=== PATIENT | male | born 1955 | race Caucasian/White ===

== ENCOUNTER 2017-03-18 19:45 | Inpatient (IN) | payer OTHER, SELFPAY ==
--- NOTE | 2017-03-18 | XR_ITS ---
XR chest portable HISTORY: Chest pain ORDERING PHYSICIAN: Itz Coyle MD PATIENT AGE: 61 years COMPARISON: None available FINDINGS: Cardiomegaly with mild pulmonary venous engorgement. No lobar consolidation or collapse. No acute bony anomalies. IMPRESSION: Cardiomegaly with mild CHF
[2017-03-18 19:56] VITALS: BP 70/0; PULSE 70; RESP 24; O2SAT 97; BMI 28.8
[2017-03-18 20:10] VITALS: BP 70/0; PULSE 61; RESP 24; TEMP 37.2; O2SAT 97; BMI 28.0
[2017-03-18 20:25] LABS: Basophils % 0.2 % (0.1-2.0); Eosinophils # 0.1 K/mm3 (0.0-0.4); Eosinophils % 0.3 % (0.1-12.0); Hematocrit 37.2 % (42.0-52.0); Hemoglobin 12.2 g/dL (14.1-18.0); Lymphocytes # 0.9 K/mm3 (0.7-4.5); Lymphocytes % 4.8 K/mm3 (10-50); Mean Corpuscular HGB Conc 32.8 g/dL (31.8-35.4); Mean Corpuscular Hemoglobin 31.1 pg (27.0-31.2); Mean Corpuscular Volume 94.6 fl (80-94); Mean Platelet Volume 8.4 fl (7.4-10.4); Monocytes # 0.5 K/mm3 (0.1-1.0); Monocytes % 2.9 % (1.7-9.3); Neutrophils # 16.6 K/mm3 (1.8-7.8); Neutrophils % 91.8 % (37.0-80.0); Platelet Count 233 K/mm3 (142-424); Red Blood Count 3.94 M/mm3 (4.60-6.20); Red Cell Distribution Width 13.1 % (11.5-17.5); White Blood Count 18.1 K/mm3 (4.8-10.8)
[2017-03-18 20:26] VITALS: O2SAT 94
[2017-03-18 20:27] LABS: MANUAL DIFFERENTIAL MANUAL DIFFERENTIAL (MANUAL DIFF)
--- NOTE | 2017-03-18 20:34 | HMH.EDSYNC ---
ED Disposition Clinical Impression: Near syncope, Dehydration, Renal insufficiency, Liver mass, right lobe Leukocytosis Qualifiers: Leukocytosis type: bandemia Qualified Code(s): D72.825 - Bandemia Disposition: Admitted As Inpatient Condition on Discharge: Good - Critical Care Critical Care Time: Yes Attestation: On 03/18/17, the high probability of a clinically significant, sudden or life threatening deterioration of the following system(s) required my full and direct attention, intervention and personal management. The time I documented below is in addition to time spent performing reported procedures but includes the following listed in this critical care notation. Total Critical Care Time: 120 Vital system(s) involved:: Metabolic Failure My critical care processes included: Assessment & monitoring of V/S, Initial and Re-exams, Coordinating Care, Medication Orders and management, Documentation Medical Decision Making - Medical Records Medical records reviewed: Yes: I reviewed the patient's medical records. Vital Signs: 03/18/17 19:56 03/18/17 20:10 03/18/17 20:26 Temperature 99 F Temperature Source Rectal Rectal Pulse Rate [Left Brachial] 70 61 Respiratory Rate 24 24 Blood Pressure [Left Arm] 70/0 70/0 Blood Pressure [Right Arm] Blood Pressure Mean [Left Arm] 23 23 Blood Pressure Mean [Right Arm] Blood Pressure Source [Left Arm] Manual Cuff/ Auscultation Manual Cuff/ Auscultation Blood Pressure Source [Right Arm] Blood Pressure Position [Left Arm] Sitting Sitting Blood Pressure Position [Right Arm] 02 Sat by Pulse Oximetry 97 97 94 L Oxygen Delivery Method Nasal Cannula Nasal Cannula Nasal Cannula Oxygen Flow Rate (LPM) 2 2 2 03/18/17 21:05 03/18/17 22:46 Temperature Temperature Source Pulse Rate [Left Brachial] 65 70 Respiratory Rate 20 20 Blood Pressure [Left Arm] 89/65 98/60 Blood Pressure [Right Arm] 98/60 Blood Pressure Mean [Left Arm] 73 72 Blood Pressure Mean [Right Arm] 72 Blood Pressure Source [Left Arm] Automatic Cuff Automatic Cuff Blood Pressure Source [Right Arm] Automatic Cuff Blood Pressure Position [Left Arm] Supine Supine Blood Pressure Position [Right Arm] Supine 02 Sat by Pulse Oximetry 94 L 91 L Oxygen Delivery Method Nasal Cannula Nasal Cannula Oxygen Flow Rate (LPM) 2 2 - Lab Data Lab Results 03/18/17 20:00: WBC 18.1 H, RBC 3.94 L, Hgb 12.2 L, Hct 37.2 L, MCV 94.6 H, MCH 31.1, MCHC 32.8, RDW 13.1, Plt Count 233, MPV 8.4, Neut % (Auto) 91.8 H, Lymph % (Auto) 4.8 L, [place] % (Auto) 2.9, Eos % (Auto) 0.3, Baso % (Auto) 0.2, Neut # (Auto) 16.6 H, Lymph # (Auto) 0.9, [place] # (Auto) 0.5, Eos # (Auto) 0.1, Baso # (Auto) 0.0, Total Counted 100, Neutrophils % (Manual) 91 H, Lymphocytes % (Manual) 7 L, Monocytes % (Manual) 2, Platelet Estimate Normal, Anisocytosis 1+ 03/18/17 20:00: Sodium 136, Potassium 3.3 L, Chloride 100, Carbon Dioxide 24, Anion Gap 15.3 H, BUN 28 H, Creatinine 1.84 H, Estimated Creat Clear 50, Estimated GFR 37 L, Est GFR ( Amer) 45 L, Glucose 141 H, Calcium 8.8, Total Bilirubin 1.1 H, AST 88 H, ALT 94 H, Alkaline Phosphatase 125 H, Total Creatine Kinase 70, CK-MB (CK-2) 1.8, CK-MB (CK-2) Rel Index 2.6, Troponin I 0.40 H, Total Protein 7.0, Albumin 2.8 L, Globulin 4.2 H, Albumin/Globulin Ratio 0.7 L 03/18/17 20:00: Influenza Type A Ag Negative, Influenza Type B Ag Negative 03/18/17 20:30: Lactic Acid 5.3 H 03/18/17 22:05: Troponin I 0.28 H Result diagrams: 03/18/17 20:00 03/18/17 20:00 Orders (Tests/Meds): ED MEDICATIONS Discontinued Medications Generic Name Dose Route Start Last Admin Trade Name Freq PRN Reason Stop Dose Admin Sodium Chloride 2,000 mls @ 999 mls/hr 03/18/17 20:30 Sod Chloride 0.9% 1000ml Bag IV 03/18/17 21:30 .Q2H1M DINO Sodium Chloride 1,000 mls @ 999 mls/hr 03/18/17 20:30 03/18/17 20:31 Sod Chloride 0.9% 1000ml Bag IV 03/18/17 22:30 999 mls/hr .Q1H1M DINO Administration
--- NOTE | 2017-03-18 20:38 | ED_ITS ---
ED Disposition Clinical Impression: Near syncope, Dehydration, Renal insufficiency, Liver mass, right lobe Leukocytosis Qualifiers: Leukocytosis type: bandemia Qualified Code(s): D72.825 - Bandemia Disposition: Admitted As Inpatient Condition on Discharge: Good - Critical Care Critical Care Time: Yes Attestation: On 03/18/17, the high probability of a clinically significant, sudden or life threatening deterioration of the following system(s) required my full and direct attention, intervention and personal management. The time I documented below is in addition to time spent performing reported procedures but includes the following listed in this critical care notation. Total Critical Care Time: 120 Vital system(s) involved:: Metabolic Failure My critical care processes included: Assessment & monitoring of V/S, Initial and Re-exams, Coordinating Care, Medication Orders and management, Documentation Medical Decision Making - Medical Records Medical records reviewed: Yes: I reviewed the patient's medical records. Vital Signs: 03/18/17 19:56 03/18/17 20:10 03/18/17 20:26 Temperature 99 F Temperature Source Rectal Rectal Pulse Rate [Left Brachial] 70 61 Respiratory Rate 24 24 Blood Pressure [Left Arm] 70/0 70/0 Blood Pressure [Right Arm] Blood Pressure Mean [Left Arm] 23 23 Blood Pressure Mean [Right Arm] Blood Pressure Source [Left Arm] Manual Cuff/ Auscultation Manual Cuff/ Auscultation Blood Pressure Source [Right Arm] Blood Pressure Position [Left Arm] Sitting Sitting Blood Pressure Position [Right Arm] 02 Sat by Pulse Oximetry 97 97 94 L Oxygen Delivery Method Nasal Cannula Nasal Cannula Nasal Cannula Oxygen Flow Rate (LPM) 2 2 2 03/18/17 21:05 03/18/17 22:46 Temperature Temperature Source Pulse Rate [Left Brachial] 65 70 Respiratory Rate 20 20 Blood Pressure [Left Arm] 89/65 98/60 Blood Pressure [Right Arm] 98/60 Blood Pressure Mean [Left Arm] 73 72 Blood Pressure Mean [Right Arm] 72 Blood Pressure Source [Left Arm] Automatic Cuff Automatic Cuff Blood Pressure Source [Right Arm] Automatic Cuff Blood Pressure Position [Left Arm] Supine Supine Blood Pressure Position [Right Arm] Supine 02 Sat by Pulse Oximetry 94 L 91 L Oxygen Delivery Method Nasal Cannula Nasal Cannula Oxygen Flow Rate (LPM) 2 2 - Lab Data Lab Results 03/18/17 20:00: WBC 18.1 H, RBC 3.94 L, Hgb 12.2 L, Hct 37.2 L, MCV 94.6 H, MCH 31.1, MCHC 32.8, RDW 13.1, Plt Count 233, MPV 8.4, Neut % (Auto) 91.8 H, Lymph % (Auto) 4.8 L, [place] % (Auto) 2.9, Eos % (Auto) 0.3, Baso % (Auto) 0.2, Neut # ( Auto) 16.6 H, Lymph # (Auto) 0.9, [place] # (Auto) 0.5, Eos # (Auto) 0.1, Baso # ( Auto) 0.0, Total Counted 100, Neutrophils % (Manual) 91 H, Lymphocytes % (Manual ) 7 L, Monocytes % (Manual) 2, Platelet Estimate Normal, Anisocytosis 1+ 03/18/17 20:00: Sodium 136, Potassium 3.3 L, Chloride 100, Carbon Dioxide 24, Anion Gap 15.3 H, BUN 28 H, Creatinine 1.84 H, Estimated Creat Clear 50, Estimated GFR 37 L, Est GFR ( Amer) 45 L, Glucose 141 H, Calcium 8.8, Total Bilirubin 1.1 H, AST 88 H, ALT 94 H, Alkaline Phosphatase 125 H, Total Creatine Kinase 70, CK-MB (CK-2) 1.8, CK-MB (CK-2) Rel Index 2.6, Troponin I 0.40 H, Total Protein 7.0, Albumin 2.8 L, Globulin 4.2 H, Albumin/Globulin Ratio 0.7 L 03/18/17 20:00: Influenza Type A Ag Negati
--- NOTE | 2017-03-18 20:39 | PC.NURSE ---
respiratory notified for ABG.
--- NOTE | 2017-03-18 20:41 | CT_ITS ---
CT abdomen pelvis wo con CLINICAL INDICATION: Pain, hypotension, abnormal physical exam of the abdomen with tenderness ITS.REASON: abn abd exam ORDERING PHYSICIAN: Scott Garcia MD PATIENT AGE: 61 years COMPARISON: None TECHNIQUE: Axial images obtained with sagittal and coronal reformats. PROCEDURE: Oral Contrast: None IV Contrast: None . FINDINGS: Mild atelectatic changes in the lung bases. There are coronary artery calcifications and cardiomegaly. Small hiatal hernia There is an ill-defined 7.4 x 5.8 cm hypodense mass within the right hepatic lobe suspicious for malignancy. The gallbladder, spleen, pancreas, and adrenal glands are unremarkable. There is mild stranding of the perinephric renal fat. There is a 2.9 x 2.4 cm isodense exophytic lesion projecting off the lateral aspect of the left kidney. This is more dense somewhat one would expect for simple cyst. Hyperdense cyst or solid lesion is considered. Ultrasound suggested. No obstructing renal or ureteral calculi are evident. No intestinal obstruction or free air. Unremarkable appendix. There are scattered diverticula within the colon but no evidence of diverticulitis. Air-fluid levels present in the rectosigmoid may reflect diarrhea. No acute bony anomalies. IMPRESSION: 1. Ill-defined 7.4 cm hypodense mass within the right hepatic lobe which may be due to malignancy. Repeat exam with contrast with three-phase imaging suggested 2. Indeterminate isodense left renal lesion possibly related to complex cyst or solid lesion. Suggest ultrasound. 3. Other nonacute findings as described above
[2017-03-18 20:50] LABS: Alanine Aminotransferase 94 U/L (12-78); Albumin Level 2.8 gm/dL (3.4-5.0); Albumin/Globulin Ratio 0.7 (1.1-1.8); Alkaline Phosphatase 125 U/L (46-116); Anion Gap 15.3 mEq/L (5-15); Aspartate Amino Transferase 88 U/L (15-37); Bilirubin,Total 1.1 mg/dL (0.2-1.0); Blood Urea Nitrogen 28 mg/dL (7-18); CKMB Relative Index 2.6 U/L (0-4.0); Calcium 8.8 mg/dL (8.5-10.1); Carbon Dioxide 24 mmol/L (21.0-32.0); Chloride 100 mmol/L (98-107); Creatine Kinase 70 U/L (39-308); Creatine Kinase MB 1.8 mg/ml (0.0-3.6); Creatinine Clearance Estimated 50 mL/min (0-300); Creatinine,Serum 1.84 mg/dL (0.70-1.30); Estimated Glomerular Filt Rate 37 ml/min (>60); GFR (African American) 45 ML/MIN (>60); Globulin 4.2 gm/dl (1.3-3.2); Glucose 141 mg/dL (74-106); Potassium 3.3 mmoL/L (3.5-5.1); Sodium 136 mmol/L (136-145)
[2017-03-18 21:05] VITALS: BP 89/65; PULSE 65; RESP 20; O2SAT 94
[2017-03-18 21:12] LABS: Lactic Acid 5.3 mmol/L (0.4-2.0)
--- NOTE | 2017-03-18 21:12 | PC.NURSE ---
Critical lab value received from Mun[place] in lab. Lactic acid 5.3. Dr. Coyle immediately notified. Verbalized understanding.
[2017-03-18 22:16] LABS: Anisocytosis 1+; Lymphocytes % 7 % (10-50); Monocytes % 2 % (2-9); Neutrophils % 91 % (42-76); Platelet Estimate Normal; Total Cells Counted 100
[2017-03-18 22:46] VITALS: BP 98/60; PULSE 70; RESP 20; O2SAT 91
[2017-03-18 22:49] LABS: Troponin I 0.28 ng/ml (0.00-0.06)
[2017-03-19] VITALS (32 sets, daily range): BP systolic 96–185; BP diastolic 48–131; PULSE 67–115; RESP 0–24; TEMP 36.1–36.6; O2SAT 77–100
[2017-03-19 00:05] LABS: Reflex Lactic Add Lactic Reflex
--- NOTE | 2017-03-19 00:19 | PC.NURSE ---
PATIENT IS RECEIVING LITER # 5 AND 6 OF NORMAL SALINE WIDE OPEN
--- NOTE | 2017-03-19 00:20 | US_ITS ---
US abdomen complete HISTORY: Evaluate hepatic mass and left renal lesion ITS.REASON: abn ct liver ORDERING PHYSICIAN: Scott Garcia MD PATIENT AGE: 61 years COMPARISON: CT scan of 03/18/2017 FINDINGS: PANCREAS:Unremarkable. No obvious mass or abnormal fluid collection. No ductal dilatation LIVER:There is a 7 x 6.5 cm heterogeneous mass involving the right lobe of the liver corresponding to the CT abnormality. This has a somewhat septated appearance and does NOT represent a simple cyst. The septations are somewhat thickened.. RIGHT KIDNEY:Unremarkable. Normal size and echogenicity. No hydronephrosis LEFT KIDNEY: 2.7 cm exophytic cyst involving the left kidney laterally corresponding to the CT abnormality. No hydronephrosis. GALLBLADDER:No gallstones. Small amount of sludge. There is some minimal pericholecystic fluid. No gallbladder wall thickening. AORTA:No evidence of aneurysmal dilatation. SPLEEN:Unremarkable. Normal size and echogenicity ASCITES:None demonstrated. IMPRESSION: 1. 7 cm mass involves the right lobe of the liver having a heterogeneous echogenicity with a somewhat septated appearance. This could represent a septated cystic neoplasm such as metastatic lesion. Differential diagnosis would include abscess. Hepatic lymphangioma or hepatic hyadid cyst is felt to be less likely based on the appearance but not totally excluded. Suggest [address] scan with contrast for further evaluation. 2. Left adrenal nodule represents a cyst. 3. Minimal amount of pericholecystic fluid with a small amount gallbladder sludge
[2017-03-19 00:55] LABS: Microscopic, Urine URINE MICROSCOPIC (MICROSCOPIC)
[2017-03-19 01:12] LABS: Appearance,Urine CLEAR (Clear); Blood, Urine Negative (Negative); Color,Urine YELLOW (Yellow); Glucose,Urine (UA) Negative (Negative); Ketones,Urine TRACE (Negative); Leukocyte Esterase,Urine 1+ (Negative); Nitrate,Urine Negative (Negative); Protein,Urine 1+ (Negative); Specific Gravity, Urine 1.025 (1.005-1.030); Urobilinogen,Urine >=8.0 EU/dl (0.2)
[2017-03-19 01:16] LABS: Bilirubin,Urine Negative (Negative)
[2017-03-19 01:25] LABS: Adenovirus,PCR Not Detected (NotDetected); Bordetella Pertussis Not Detected (NotDetected); Chlamydophila Pneumoniae, PCR Not Detected (NotDetected); Coronavirus 229E Not Detected (NotDetected); Coronavirus NL63 Not Detected (NotDetected); Coronavirus OC43 Not Detected (NotDetected); Coronovirus HKU1,PCR Not Detected (NotDetected); Human Metapneumovirus Not Detected (NotDetected); Influenza A, PCR Not Detected (NotDetected); Influenza AH1, 2009 Not Detected (NotDetected); Influenza AH1, PCR Not Detected (NotDetected); Influenza AH3,PCR Not Detected (NotDetected); Influenza B, PCR Not Detected (NotDetected); Mycoplasma Pneumoniae, PCR Not Detected (NotDected); Parainfluenza 1, PCR Not Detected (NotDetected); Parainfluenza 2, PCR Not Detected (NotDetected); Parainfluenza 3, PCR Not Detected (NotDetected); Parainfluenza 4, PCR Not Detected (NotDetected); Respiratory Syncytial Virus Not Detected (NotDetected); Rhinovirus/Enterovirus Not Detected (NotDetected)
[2017-03-19 01:25] LABS: Lactic Acid Follow Up (RFLX 1) 3.9 (0.4-2.0)
[2017-03-19 01:26] LABS: Reflex Lactic (2 hrs) Add Lactic Reflex
[2017-03-19 01:27] LABS: Bacteria,Urine 1+ /lpf; Mucus,Urine 1+ /lpf; Sperm,Urine 1+ /lpf
[2017-03-19 01:59] LABS: POC Glucose,Bedside 152 mg/dL
[2017-03-19 03:26] LABS: Lactic Acid Follow up (RFLX 2) 3.5 (0.4-2.0)
--- NOTE | 2017-03-19 04:28 | PC.NURSE ---
PT IS A&OX3. PT ARRIVED TO THE FLOOR RECEIVING 2LPM VIA N/C. HE HAS BEEN DIAPHORETIC AT TIMES. DIFFICULTLY KEEPING MONITOR LEADS ON. HE REPORTED THAT ALL DAY HE HAS FELT LIKE HE IS FAVING PANIC ATTACKS. PT REPORTS THAT HE DOES NOT GO TO THE OFFICE OFTE, PT RECEIVED PRN DUONEB. ANDREWIE IS AT THE BEDSIDE.
[2017-03-19 06:22] LABS: Basophils % 0.1 % (0.1-2.0); Eosinophils % 0.1 % (0.1-12.0); Hematocrit 34.3 % (42.0-52.0); Hemoglobin 11.1 g/dL (14.1-18.0); Lymphocytes # 0.7 K/mm3 (0.7-4.5); Lymphocytes % 3.2 K/mm3 (10-50); Mean Corpuscular HGB Conc 32.5 g/dL (31.8-35.4); Mean Corpuscular Hemoglobin 30.9 pg (27.0-31.2); Mean Corpuscular Volume 95.1 fl (80-94); Mean Platelet Volume 8.7 fl (7.4-10.4); Monocytes # 0.5 K/mm3 (0.1-1.0); Monocytes % 2.3 % (1.7-9.3); Neutrophils # 21.2 K/mm3 (1.8-7.8); Neutrophils % 94.3 % (37.0-80.0); Platelet Count 206 K/mm3 (142-424); Red Cell Distribution Width 13.1 % (11.5-17.5); White Blood Count 22.5 K/mm3 (4.8-10.8)
[2017-03-19 06:39] LABS: MANUAL DIFFERENTIAL MANUAL DIFFERENTIAL (MANUAL DIFF)
[2017-03-19 06:49] LABS: Anion Gap 14.5 mEq/L (5-15); Blood Urea Nitrogen 31 mg/dL (7-18); Carbon Dioxide 22 mmol/L (21.0-32.0); Chloride 107 mmol/L (98-107); Creatinine Clearance Estimated 75 mL/min (0-300); Creatinine,Serum 1.32 mg/dL (0.70-1.30); Estimated Glomerular Filt Rate 55 ml/min (>60); GFR (African American) 66 ML/MIN (>60); Glucose 151 mg/dL (74-106); Potassium 4.5 mmoL/L (3.5-5.1); Sodium 139 mmol/L (136-145)
--- NOTE | 2017-03-19 06:51 | CA_ITS ---
PROCEDURE: 2-D M-mode and color Doppler study INDICATIONS FOR THE TEST: Chest pain COPDX Heart MurmurX Tobacco SmokingX Palpitations Fatigue Syncope Edema Hypertension Diabetes Mellitus Rheumatic Fever SOBXDOEXObesityXHyperlipidemia Family History HD Additional History PATIENT INFORMATION HEIGHT: 69 WEIGHT:203 GENDER: Male B/P:139/88 2-D/M-MODE INTERPRETATION: 2-D MEASUREMENTS OBSERVED VALUES IN CMS Right Ventricular Dimension (RVDd) 3.1 Interventricular Septum (Thickness)(IVsd) 1.2 Left Ventricular Internal Dimensions(LVIDd) 6.8 Left Ventricular Posterior Wall (Thickness)(LVPWd) 1.0 Aortic Root 2.8 Aortic Cusp Separation Left Atrial Dimensions (LAD) 4.0 2D 1. Left atrium is qualitatively moderately enlarged, left ventricle is mildly dilated, there is reduced left ventricular systolic function, visually estimated ejection fraction approximately 30-35%, there is marked hypokinesis involving the mid to distal septum, anterior, anteroapical and anterolateral wall. 2. The right atrium and right ventricle are mildly enlarged, contractility of the right ventricle is normal. 3. The aortic valve is minimally thickened and fibrosed. 4. The mitral and tricuspid valve leaflets are minimally thickened. 5. The pulmonic valve is poorly visualized. 6. No significant pericardial effusion noted. DOPPLER INTERROGATION: Doppler interrogation of the aortic, mitral and tricuspid valvular presence of mild mitral and tricuspid regurgitation, calculated right ventricular systolic pressure is 52 mmHg consistent with moderate pulmonary hypertension, inferior vena cava is dilated without significant inspiratory collapse. Diastolic parameters are inconclusive. CONCLUSION: 1. Moderately enlarged left atrium, mildly dilated left ventricle, mild concentric left ventricular hypertrophy, reduced left ventricular systolic function, visually estimated ejection fraction 30-35% with segmental wall motion abnormalities as described above. Diastolic parameters are inconclusive. 2. Mildly enlarged right atrium and right ventricle, contractility of the right ventricle is normal. 3. Mild mitral and tricuspid regurgitation, calculated right ventricular systolic pressure is 52 mmHg consistent with moderate pulmonary hypertension, inferior vena cava is dilated without significant inspiratory collapse. 4. No significant pericardial effusion noted.
[2017-03-19 07:54] LABS: ABG Base Excess -7.3 mmol/L (-2.4-2.3); ABG Oxygen Saturation 98 % (90-100); ABG PCO2 26.1 mmhg (35.0-45.0); ABG PH 7.43 mmol/L (7.35-7.45); ABG PO2 109.6 mmhg (80-100); ABG TCO2 17.8 mmhg (23-27); Allen's Test ACCEPTABLE; Oxygen 5LPM %; Source R RADIAL
[2017-03-19 08:32] LABS: Lymphocytes % 4 % (10-50); Monocytes % 2 % (2-9); Neutrophils % 89 % (42-76); Platelet Estimate Normal; Total Cells Counted 100
--- NOTE | 2017-03-19 08:50 | HMH.HP ---
*Admission Date: 03/18/17 <Ale Bonilla - 03/19/17 09:09> *Chief complaint: Weakness, fever, near syncope <Ale Bonilla 03/19/17 09:09> *History of present illness: Mr. Peoples is a 61-year-old male who has been having high fevers for the past 3 days. His states he normally has sinus issues off and on throughout the year and has also battled frequent fevers off and on. He states he began with sinus problems a few weeks ago, these got better, and then returned. The fevers have been for 3 days and he has been having shaking episodes and chills. His states yesterday he began having an episode where he appeared to be hyperventilating. She thought he was having a panic attack. She states she convinced him to go to the emergency room and was going to take him upstairs to take a shower before he came to the emergency room. When she turned around he was on the ground. The patient states he never lost consciousness he just got weak and eased himself to the ground. He presented to emergency room for workup. His white blood cell count was elevated, his renal functions were elevated, his troponin I was elevated, and his lactic acid was elevated. He was admitted with the diagnosis of sepsis and the sepsis protocol was started. Cardiology was consulted. This a.m. the patient is feeling much better. He states he is thirsty. His fever is down and his chills have improved. He still has some sinus congestion. He states he vomited 2 times once he presented to the emergency room and had an episode of diarrhea, but this is resolved as well. His states his urine output is decreased and even after numerous bags of fluid he has had minimal output and his urine is very dark. Cardiology has been consulted but has not yet seen the patient. Preliminary echo report shows an EF of 25-35%. <Ale Bonilla 03/19/17 09:09> [facility] History Medical History: Reports:: Hypertension Denies:: Cancer, Diabetes Mellitus Type 1, Diabetes Mellitus Type 2, MRSA <Ale Bonilla 03/19/17 09:09> Laterality Cases: Bilateral: Tonsillectomy <Ale Bonilla 03/19/17 09:09> Other Surgeries: No: Pacemaker <Ale Bonilla 03/19/17 09:09> Amputation: No <Ale Bonilla 03/19/17 09:09> Fractures: No <Pavel Bonilla03/19/17 09:09> - *Social History Educational Level: Completed High School <Ale Bonilla 03/19/17 09:09> Smoking Status: Current every day smoker <Ale Bonilla 03/19/17 09:09> Tobacco Type: cigarettes <Ale Bonilla 03/19/17 09:09> Alcohol Intake: never <Ale Bonilla 03/19/17 09:09> Occupational Status: employed <Ale Bonilla 03/19/17 09:09> Housing: house <Ale Bonilla 03/19/17 09:09> Household Members: spouse <Ale Bonilla 03/19/17 09:09> - Psychiatric History Expresses thoughts of harming self/others: None <Ale Bonilla 03/19/17 09:09> Suicide Plan Description: No Plan <Ale Bonilla 03/19/17 09:09> Pschychiatric History:: Reports:: Anxiety <Ale Bonilla 03/19/17 09:09> *Family Hx:: Coronary Artery Disease, Heart Attack, Hypertension <Ale Bonilla 03/19/17 09:09> Review of Systems - Constitutional Reports body ache(s), Reports chills, Reports fatigue, Reports fever(s), Reports lack of energy, Reports night sweats, Reports weakness <Ale Bonilla 03/19/17 09:09> - Eyes Denies blurry vision, Denies double vision <Ale Bonilla 03/19/17 09:09> - ENT Reports nasal congestion, Denies sore throat <Ale Bonilla 03/19/17 09:09> - *Cardiovascular Denies chest pain, Denies rapid, pounding, or irregular heartbeat <Ale Bonilla 03/19/17 09:09> - *Respiratory Reports shortness of breath, Denies cough <Ale Bonilla 03/19/17 09:09> - *Gastrointestinal Reports loose stools, Reports vomiting, Denies abdominal pain <Ale Bonilla - 03/19/17 09:09> - *Genitourinary Reports decreased urination, Denies difficulty urinating, Denies painful urination <Ale Bonilla - 03/19/17
--- NOTE | 2017-03-19 08:53 | P.HP_ITS ---
*Admission Date: 03/18/17 <Ale Bonilla - 03/19/17 09:09> *Chief complaint: Weakness, fever, near syncope <Ale Bonilla 03/19/17 09: 09> *History of present illness: Mr. Peoples is a 61-year-old male who has been having high fevers for the past 3 days. His states he normally has sinus issues off and on throughout the year and has also battled frequent fevers off and on. He states he began with sinus problems a few weeks ago, these got better, and then returned. The fevers have been for 3 days and he has been having shaking episodes and chills. His states yesterday he began having an episode where he appeared to be hyperventilating. She thought he was having a panic attack. She states she convinced him to go to the emergency room and was going to take him upstairs to take a shower before he came to the emergency room. When she turned around he was on the ground. The patient states he never lost consciousness he just got weak and eased himself to the ground. He presented to emergency room for workup. His white blood cell count was elevated, his renal functions were elevated, his troponin I was elevated, and his lactic acid was elevated. He was admitted with the diagnosis of sepsis and the sepsis protocol was started. Cardiology was consulted. This a.m. the patient is feeling much better. He states he is thirsty. His fever is down and his chills have improved. He still has some sinus congestion. He states he vomited 2 times once he presented to the emergency room and had an episode of diarrhea, but this is resolved as well. His states his urine output is decreased and even after numerous bags of fluid he has had minimal output and his urine is very dark. Cardiology has been consulted but has not yet seen the patient. Preliminary echo report shows an EF of 25-35%. <Ale Bonilla 03/19/17 09:09> [facility] History Medical History: Reports:: Hypertension Denies:: Cancer, Diabetes Mellitus Type 1, Diabetes Mellitus Type 2, MRSA < Ale Bonilla 03/19/17 09:09> Laterality Cases: Bilateral: Tonsillectomy <Ale Bonilla 03/19/17 09:09> Other Surgeries: No: Pacemaker <Ale Bonilla 03/19/17 09:09> Amputation: No <Ale Bonilla 03/19/17 09:09> Fractures: No <Pavel Bonilla03/19/17 09:09> - *Social History Educational Level: Completed High School <Ale Bonilla 03/19/17 09:09> Smoking Status: Current every day smoker <Ale Bonilla 03/19/17 09:09> Tobacco Type: cigarettes <Ale Bonilla 03/19/17 09:09> Alcohol Intake: never <Ale Bonilla 03/19/17 09:09> Occupational Status: employed <Ale Bonilla 03/19/17 09:09> Housing: house <Ale Bonilla 03/19/17 09:09> Household Members: spouse <Ale Bonilla 03/19/17 09:09> - Psychiatric History Expresses thoughts of harming self/others: None <Ale Bonilla 03/19/17 09: 09> Suicide Plan Description: No Plan <Ale Bonilla 03/19/17 09:09> Pschychiatric History:: Reports:: Anxiety <Ale Bonilla 03/19/17 09:09> *Family Hx:: Coronary Artery Disease, Heart Attack, Hypertension <Ale Bonilla 03/19/17 09:09> Review of Systems - Constitutional Reports body ache(s), Reports chills, Reports fatigue, Reports fever(s), Reports lack of energy, Reports night sweats, Reports weakness <Ale Bonilla 03/19/17 09:09> - Eyes Denies blurry vision, Denies double vision <Ale Bonilla 03/19/17 09:09> - ENT Reports nasal congestion, Denies sore throat <Ale Bonilla 03/19/17 09:09> - *Cardiovascular Denies chest pain, Denies rapid, pounding, or irregular heartbeat <Ale Bonilla 03/19/17 09:09> - *Respiratory Reports shortness of breath, Denies coug
--- NOTE | 2017-03-19 10:18 | HMH.PHAVTE ---
[facility] VTE Monitoring - Patient Demographics Admission date: 03/18/17 Report Date: 03/19/17 Time: 10:18 Allergies/Adverse Reactions: No Known Allergies Allergy (Verified 03/19/17 02:53) Height: 1.75 m Weight: 92.334 kg Patient Problems: Current Active Problems Near syncope (Acute) Leukocytosis (Acute) Dehydration (Acute) Renal insufficiency (Acute) Liver mass, right lobe (Acute) Elevated troponin I level (Acute) Elevated lactic acid level (Acute) Hypertension (Chronic) Anxiety (Chronic) - VTE Risk Labs: VTE Related Lab Results Hgb 11.1 g/dL (14.1-18.0) L 03/19/17 06:10 Hct 34.3 % (42.0-52.0) L 03/19/17 06:10 Plt Count 206 K/mm3 (142-424) 03/19/17 06:10 BUN 31 mg/dL (7-18) H 03/19/17 06:10 Creatinine 1.32 mg/dL (0.70-1.30) H D 03/19/17 06:10 Estimated Creat Clear 75 mL/min (0-300) 03/19/17 06:10 Was VTE Risk Assessment Performed: Yes VTE Risk Level: Low Risk - Prophylaxis VTE Prophylaxis Ordered?: Yes Types of VTE Prophylaxis: TEDS Knee High Location of Applied Device: Bilateral Lower Extremeties - VTE Diagnosis Confirmed Treatment or plan recommended: Continue Current Treatment
--- NOTE | 2017-03-19 10:47 | IR_ITS ---
CARDIAC CATHETERIZATION DATE OF CATHETERIZATION:03/19/2017 11:02 AM PROCEDURES: 1. Left heart catheterization 2. Left ventriculogram 3. Selective coronary angiogram 4. Attempted angioplasty to the LAD INDICATION FOR TEST: 1. Acute non-ST elevation myocardial infarction 2. Systolic congestive heart failure 3. Abnormal echocardiogram large regional wall motion abnormality Informed consent was obtained prior to the procedure. COMPLICATIONS: None ESTIMATED BLOOD LOSS: Less than 10 ml. TECHNIQUE: One percent lidocaine used to anesthetize the right anterior aspect of the wrist. The right radial artery was accessed via the Seldinger technique. A 6 [place] sheath was placed in the right radial artery. 2.5 mg of verapamil, 800 mcg of nitroglycerin and 5000 U Heparin were given through the arterial sheath. The trap catheter was also used to perform left heart catheterization left ventriculogram and selective coronary angiogram. Patient's LAD was occluded immediately after a large diagonal artery and fills via left to left collaterals. Patient's echocardiogram a strikingly abnormal with severely reduced ejection fraction and anterior wall hypokinesis. Furthermore his EKG demonstrated diffuse T-wave abnormalities consistent with active ischemia. Patient's left ventricular end-diastolic pressure were 60 mmHg. I felt patient may benefit from revascularization of the LAD. An additional 2000 units of heparin was administered intravenously giving an ACT greater than 300 seconds. An Ik[place] 4.5 guide catheter was used intubate the left main artery and choice PT extra-support wire is were placed into the first diagonal artery as well as into the LAD itself. A 2.5 as well as a 1.5 mm balloon was used to try to push through the occlusion however after multiple attempts I was simply unable to reenter the lumen or make the wire turn and followed the new [place] LAD. It was decided the patient would benefit from surgical revascularization therefore the apparatus was removed the sheath was removed good hemostasis was achieved using TR banding patient transferred the intensive care unit for further treatment and monitoring ANGIOGRAPHIC RESULTS: 1. The left main artery normal 2. The left anterior descending artery has proximal concentric 70-80% stenosis and then gives rise to a large first diagonal artery. After the first diagonal artery the LAD is bluntly occluded. The distal LAD fills via left to left collaterals primarily from the diagonal artery 3. The circumflex artery is nondominant yet still large vessel with a proximal concentric 70% stenosis and a mid vessel 60-70% stenosis followed by an additional 40-50% stenosis supplying a large 3.5 mm obtuse marginal artery 4. The right coronary artery is a very large dominant vessel and has a long proximal 40% stenoses which extend through the mid segment. Distally the vessel has 30% stenoses. The posterior descending artery is a large vessel with a proximal 30 and mid vessel 60% stenosis. The posterior lateral ventricular branch is a large 3.5 mm vessel. 5. The ROCHE ventriculogram reveals moderate left ventricular dilatation with moderate to severe anterior wall hypokinesis estimated ejection fractions 30-35% 6. The left ventricular end-diastolic pressure is critically elevated at 60 mmHg IMPRESSION: 1. Severe coronary artery disease as described above 2. Left ventricular dilatation with regional wall motion abnormality and reduced ejection fraction 3. Severely elevated LVEDP PLAN: 1. Patient needs significant diuresis 2. I would like to transfer patient to [facility] so patient can undergo coronary artery bypass surgery with a number of graft to be decided by CT surgery 3. Supportive care 4. Tobacco cessa
[2017-03-19 11:23] LABS: Lactic Acid 2.4 mmol/L (0.4-2.0)
[2017-03-19 11:24] LABS: Reflex Lactic Add Lactic Reflex
--- NOTE | 2017-03-19 11:55 | HMH.CARDCON2 ---
History of Present Illness Consult date: 03/19/17 Requesting physician: Scott Garcia Consult reason: shortness of breath Chief complaint: SOA, weakness with near syncope History of present illness: Study 1-year-old white male with history of hypertension, tobacco use and strong family history of coronary artery disease was admitted last night through the emergency department for increasing shortness of breath with near syncopal episode. Patient relates a 3 day history of intermittent fever and chills. Some loose stools but no vomiting or diarrhea. Patient relates shortness of breath that has been increasing over the last 3 weeks and a general decline in physical ability over the last several months. In the emergency department patient was noted to be hypotensive with systolic pressure in at 70 mmHg which was treated with IV fluids. Initial troponin returned elevated with abnormal EKG without acute ST elevation. Chest x-ray did show some cardiomegaly with evidence of mild congestive heart failure. Patient's white count was noted to be elevated with an elevated lactic acid level. It was felt with his clinical situation that he was at high risk for sepsis and was admitted for further treatment. Phone consultation was undertaken with Dr. 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 Patient was started on antibiotics and admitted. This a.m. patient states he is breathing and feeling better but is still short of breath with casual conversation. Patient relates smoking 2 packs a day for about 40 years. The preliminary echocardiogram revealed reduced ejection fraction of about 30% with segmental wall motion abnormalities in the inferior and anterior areas. Cardiology consulted for evaluation and recommendations. Review of Systems - *Respiratory Reports shortness of breath with activity, Reports snoring - *Gastrointestinal Reports loose stools - *Genitourinary Reports decreased urination - *Neurologic Reports dizziness, Reports weakness, Denies loss of vision, Denies tingling/numbness/burning sensations, Denies seizure-like activity [facility] History Medical History: Reports:: Hypertension Denies:: Cancer, Diabetes Mellitus Type 1, Diabetes Mellitus Type 2, MRSA Laterality Cases: Bilateral: Tonsillectomy Other Surgeries: No: Pacemaker Amputation: No Fractures: No - *Social History Educational Level: Completed High School Smoking Status: Current every day smoker Tobacco Type: cigarettes Alcohol Intake: never Occupational Status: employed Housing: house Household Members: spouse - Psychiatric History Expresses thoughts of harming self/others: None Suicide Plan Description: No Plan Pschychiatric History:: Reports:: Anxiety *Family Hx:: Coronary Artery Disease, Heart Attack, Hypertension Meds Home Medications Medication Instructions Recorded Confirmed Type Fluoxetine HCl [Prozac 20mg 20 mg PO DAILY 03/18/17 03/19/17 History Capsule] Lisinopril [Lisinopril 40mg Tablet] 40 mg PO DAILY 03/18/17 03/19/17 History Nadolol [Nadolol] 40 mg pe PO DAILY 03/18/17 03/19/17 History Allergies Allergy/AdvReac Type Severity Reaction Status Date / Time No Known Allergies Allergy Verified 03/19/17 02:53 Exam Vital signs and Labs for Last 24 Hours: Temp Pulse Resp BP Pulse Ox 97.6 F 70 24 122/89 97 03/19/17 06:17 03/19/17 08:00 03/19/17 04:30 03/19/17 06:17 03/19/17 08:00 Laboratory Results - last 24 hr 03/19/17 00:30: Lactic Acid Fup @ 4Hr 3.9 H 03/19/17 00:42: Urine Color Yellow, Urine Appearance Clear, Urine pH 5.0, Ur Specific [place] 1.025, Urine Protein 1+, Urine Glucose (UA) Negative, Urine Ketones Trace, Urine Blood Negative, Urine Nitrate Negative, Urine Bilirubin Negative, Urine Urobilinogen >=8.0, Ur Leukocyte Esterase 1+ A, Urine RBC 3-5, Urine WBC 10-20, Ur Squamous Epith Cells 5
--- NOTE | 2017-03-19 12:01 | P.CONS_ITS ---
History of Present Illness Consult date: 03/19/17 Requesting physician: Scott Garcia Consult reason: shortness of breath Chief complaint: SOA, weakness with near syncope History of present illness: Study 1-year-old white male with history of hypertension, tobacco use and strong family history of coronary artery disease was admitted last night through the emergency department for increasing shortness of breath with near syncopal episode. Patient relates a 3 day history of intermittent fever and chills. Some loose stools but no vomiting or diarrhea. Patient relates shortness of breath that has been increasing over the last 3 weeks and a general decline in physical ability over the last several months. In the emergency department patient was noted to be hypotensive with systolic pressure in at 70 mmHg which was treated with IV fluids. Initial troponin returned elevated with abnormal EKG without acute ST elevation. Chest x-ray did show some cardiomegaly with evidence of mild congestive heart failure. Patient's white count was noted to be elevated with an elevated lactic acid level. It was felt with his clinical situation that he was at high risk for sepsis and was admitted for further treatment. Phone consultation was undertaken with Dr. Ness regarding elevated troponin and abnormal EKG but again not felt to be an acute [place] therefore no acute or urgent transfer to cardiac Hematologist needed. Patient was started on antibiotics and admitted. This a.m. patient states he is breathing and feeling better but is still short of breath with casual conversation. Patient relates smoking 2 packs a day for about 40 years. The preliminary echocardiogram revealed reduced ejection fraction of about 30% with segmental wall motion abnormalities in the inferior and anterior areas. Cardiology consulted for evaluation and recommendations. Review of Systems - *Respiratory Reports shortness of breath with activity, Reports snoring - *Gastrointestinal Reports loose stools - *Genitourinary Reports decreased urination - *Neurologic Reports dizziness, Reports weakness, Denies loss of vision, Denies tingling/ numbness/burning sensations, Denies seizure-like activity [facility] History Medical History: Reports:: Hypertension Denies:: Cancer, Diabetes Mellitus Type 1, Diabetes Mellitus Type 2, MRSA Laterality Cases: Bilateral: Tonsillectomy Other Surgeries: No: Pacemaker Amputation: No Fractures: No - *Social History Educational Level: Completed High School Smoking Status: Current every day smoker Tobacco Type: cigarettes Alcohol Intake: never Occupational Status: employed Housing: house Household Members: spouse - Psychiatric History Expresses thoughts of harming self/others: None Suicide Plan Description: No Plan Pschychiatric History:: Reports:: Anxiety *Family Hx:: Coronary Artery Disease, Heart Attack, Hypertension Meds Home Medications Medication Instructions Recorded Confirmed Type Fluoxetine HCl [Prozac 20mg 20 mg PO DAILY 03/18/17 03/19/17 History Capsule] Lisinopril [Lisinopril 40mg Tablet] 40 mg PO DAILY 03/18/17 03/19/17 History Nadolol [Nadolol] 40 mg pe PO DAILY 03/18/17 03/19/17 History Allergies Allergy/AdvReac Type Severity Reaction Status Date / Time No Known Allergies Allergy Verified 03/19/17 02:53 Exam Vital signs and Labs for Last 24 Hours: Temp Pulse Resp BP Pulse Ox 97.6 F 70 24 122/89 97 03/19/17 06:17 03/19/17 08:00 03/19/17 04:30
--- NOTE | 2017-03-19 12:21 | PC.NURSE ---
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
[2017-03-19 13:30] LABS: ABG Base Excess -13.2 mmol/L (-2.4-2.3); ABG HCO3 19.1 mmhg (22.0-26.0); ABG Oxygen Saturation 94 % (90-100); ABG PO2 102.7 mmhg (80-100); ABG TCO2 21.9 mmhg (23-27)
[2017-03-19 13:32] LABS: Oxygen 6LPM %; Source R. RADIAL
[2017-03-19 13:33] LABS: ABG PCO2 91.7 mmhg (35.0-45.0); ABG PH 6.94 mmol/L (7.35-7.45)
--- NOTE | 2017-03-19 14:07 | XR_ITS ---
XR chest portable HISTORY: ITS.REASON: CHF, SOA ORDERING PHYSICIAN: Scott Garcia MD PATIENT AGE: 61 years COMPARISON: 03/18/2017 FINDINGS: There is cardiomegaly with pulmonary venous congestion consistent with congestive heart failure. This appears slightly worse on today's study. There is some increased density in the right lung base medially which may limit related to vascular crowding and congestion. Developing atelectasis or infiltrate is also considered. Nodular opacity present in the right suprahilar region as well probably related to overlying vessel. No effusions. IMPRESSION: Congestive heart failure which is slightly worse compared to the previous exam.
--- NOTE | 2017-03-19 14:08 | HMH.DCSUM ---
General - General Admission date: 03/18/17 Discharge date: 03/19/17 HPI HPI: Mr. Peoples is a 61-year-old male who has been having high fevers for the past 3 days. His states he normally has sinus issues off and on throughout the year and has also battled frequent fevers off and on. He states he began with sinus problems a few weeks ago, these got better, and then returned. The fevers have been for 3 days and he has been having shaking episodes and chills. His states yesterday he began having an episode where he appeared to be hyperventilating. She thought he was having a panic attack. She states she convinced him to go to the emergency room and was going to take him upstairs to take a shower before he came to the emergency room. When she turned around he was on the ground. The patient states he never lost consciousness he just got weak and eased himself to the ground. He presented to emergency room for workup. His white blood cell count was elevated, his renal functions were elevated, his troponin I was elevated, and his lactic acid was elevated. He was admitted with the diagnosis of sepsis and the sepsis protocol was started. Cardiology was consulted. This a.m. the patient is feeling much better. He states he is thirsty. His fever is down and his chills have improved. He still has some sinus congestion. He states he vomited 2 times once he presented to the emergency room and had an episode of diarrhea, but this is resolved as well. His states his urine output is decreased and even after numerous bags of fluid he has had minimal output and his urine is very dark. Cardiology has been consulted but has not yet seen the patient. Preliminary echo report shows an EF of 25-35%. Objective Vital signs: Temp Pulse Resp BP Pulse Ox 97.5 F L 75 20 127/68 77 L 03/19/17 12:15 03/19/17 12:56 03/19/17 12:25 03/19/17 12:56 03/19/17 12:25 Narrative: - Constitutional no acute distress - *Routine HEENT Exam Head: Present: normocephalic, atraumatic Eye: Present: PERRL ENT: Present: mucous membranes dry - *Routine Neck Exam Present: supple, full ROM - *Routine Respiratory Exam Present: CTA bilaterally - *Routine Cardiovascular Exam Present: RRR - *Routine Abdominal Exam Present: soft, normoactive bowel sounds. Absent: tenderness - *Routine Extremities Exam Absent: edema - *Routine Skin Exam Present: intact, warm, normal turgor - *Routine Neurological Exam Present: alert, oriented X3 Hospital Course Hospital Course: The patient was rehydrated and started on abx. He was felt to have an acute febrile illness with unknown source at this time. He was admitted from the ER with a working dx of SIRS from a possible respiratory sourse. He was feeling better by the day after admission. Cardiology was consulted. He had an echo that was reviewed by Dr. Loredo who felt that the patient's ejection fraction was about 30% with anterior and inferior wall motion abnormalities. Despite the patient's suspected sepsis, it was felt that cardiac catheterization was recommended to risk stratify the patient. He was started on IV Lasix and was switched from nadolol to low dose carvedilol along with continuing his lisinopril. He had a CT of the abdomen revealing a 7.4cm hepatic mass. He had an U/S and it was felt it could represent a cystic neoplasm vs an abscess. He had a CXR showing cardiomegaly with CHF. Cardiac cath was performed and revealed chronic occluded mid LAD with collaterals from the diagonal system. He has a large dominant right coronary artery without flow occluding stenosis. Recommendation for bypass surgery was made and the patient and family agreed. Patient will be transferred to Dr. Borjas at for further treatment. Results Labs on day of discharge: Labs from last 24 hours 03/19/17 03/19/17 03/19/17 13:25 10:52 10:52 WBC
--- NOTE | 2017-03-19 14:10 | HMH.CARDPN2 ---
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 Going for CABG at . Pt with increasing difficulty breathing with cyanosis of the neck and face with sonorous respirations. Nasal airway placed by anesthesia and oxygen increased to 6 liters per minute without significant improvement. Pt placed on BiPAP with significant improvement in O2 sat and return of normal color. Milrinone transiently started. Additional IV lasix to be given along with morphine for anxiety and respiratory distress. PN Exam ([facility]) Vital signs: Temp Pulse Resp BP Pulse Ox 97.5 F L 75 20 127/68 77 L 03/19/17 12:15 03/19/17 12:56 03/19/17 12:25 03/19/17 12:56 03/19/17 12:25 - Constitutional moderate distress, severe distress, agitated - Routine Respiratory Exam Present: accessory muscle use, decreased breath sounds, respiratory distress, diminished air movement - Routine Cardiovascular Exam Present: tachycardia - Routine Skin Exam Present: cyanosis - Urinary Catheter Management Ordaz Cath placed during this visit: no A/P Progress Note ([facility]) (1) Ischemic cardiomyopathy Status: Acute Current Visit: Yes (2) Congestive heart failure Status: Acute Current Visit: Yes (3) Tobacco use Status: Acute Current Visit: Yes (4) Dehydration Status: Acute Current Visit: Yes (5) Elevated lactic acid level Status: Acute Current Visit: Yes (6) Elevated troponin I level Status: Acute Current Visit: Yes (7) Leukocytosis Status: Acute Current Visit: Yes (8) Liver mass, right lobe Status: Acute Current Visit: Yes (9) Near syncope Status: Acute Current Visit: Yes (10) Renal insufficiency Status: Acute Current Visit: Yes (11) Anxiety Status: Chronic Current Visit: Yes (12) Hypertension Status: Chronic Current Visit: Yes - Time Spent With Patient Greater than 35 minutes (Respiratory distress likely due to sedation and obstructive airway/ESA that improved with BiPAP.)
--- NOTE | 2017-03-19 14:11 | P.DS_ITS ---
General - General Admission date: 03/18/17 Discharge date: 03/19/17 HPI HPI: Mr. Peoples is a 61-year-old male who has been having high fevers for the past 3 days. His states he normally has sinus issues off and on throughout the year and has also battled frequent fevers off and on. He states he began with sinus problems a few weeks ago, these got better, and then returned. The fevers have been for 3 days and he has been having shaking episodes and chills. His states yesterday he began having an episode where he appeared to be hyperventilating. She thought he was having a panic attack. She states she convinced him to go to the emergency room and was going to take him upstairs to take a shower before he came to the emergency room. When she turned around he was on the ground. The patient states he never lost consciousness he just got weak and eased himself to the ground. He presented to emergency room for workup. His white blood cell count was elevated, his renal functions were elevated, his troponin I was elevated, and his lactic acid was elevated. He was admitted with the diagnosis of sepsis and the sepsis protocol was started. Cardiology was consulted. This a.m. the patient is feeling much better. He states he is thirsty. His fever is down and his chills have improved. He still has some sinus congestion. He states he vomited 2 times once he presented to the emergency room and had an episode of diarrhea, but this is resolved as well. His states his urine output is decreased and even after numerous bags of fluid he has had minimal output and his urine is very dark. Cardiology has been consulted but has not yet seen the patient. Preliminary echo report shows an EF of 25-35%. Objective Vital signs: Temp Pulse Resp BP Pulse Ox 97.5 F L 75 20 127/68 77 L 03/19/17 12:15 03/19/17 12:56 03/19/17 12:25 03/19/17 12:56 03/19/17 12:25 Narrative: - Constitutional no acute distress - *Routine HEENT Exam Head: Present: normocephalic, atraumatic Eye: Present: PERRL ENT: Present: mucous membranes dry - *Routine Neck Exam Present: supple, full ROM - *Routine Respiratory Exam Present: CTA bilaterally - *Routine Cardiovascular Exam Present: RRR - *Routine Abdominal Exam Present: soft, normoactive bowel sounds. Absent: tenderness - *Routine Extremities Exam Absent: edema - *Routine Skin Exam Present: intact, warm, normal turgor - *Routine Neurological Exam Present: alert, oriented X3 Hospital Course Hospital Course: The patient was rehydrated and started on abx. He was felt to have an acute febrile illness with unknown source at this time. He was admitted from the ER with a working dx of SIRS from a possible respiratory sourse. He was feeling better by the day after admission. Cardiology was consulted. He had an echo that was reviewed by Dr. Loredo who felt that the patient's ejection fraction was about 30% with anterior and inferior wall motion abnormalities. Despite the patient's suspected sepsis, it was felt that cardiac catheterization was recommended to risk stratify the patient. He was started on IV Lasix and was switched from nadolol to low dose carvedilol along with continuing his lisinopril. He had a CT of the abdomen revealing a 7.4cm hepatic mass. He had an U/S and it was felt it could represent a cystic neoplasm vs an abscess. He had a CXR showing cardiomegaly with CHF. Cardiac cath was performed and revealed chronic occluded mid LAD with collaterals from the diago
--- NOTE | 2017-03-19 14:15 | P.PN_ITS ---
Subjective PN (PG) Date: 03/19/17 Time: 14:10 Principal diagnosis: respiratory distress Interval history: 61 yo WM just returned from cardiac rn cardiac cath. Going for CABG at . Pt with increasing difficulty breathing with cyanosis of the neck and face with sonorous respirations. Nasal airway placed by anesthesia and oxygen increased to 6 liters per minute without significant improvement. Pt placed on BiPAP with significant improvement in O2 sat and return of normal color. Milrinone transiently started. Additional IV lasix to be given along with morphine for anxiety and respiratory distress. PN Exam ([facility]) Vital signs: Temp Pulse Resp BP Pulse Ox 97.5 F L 75 20 127/68 77 L 03/19/17 12:15 03/19/17 12:56 03/19/17 12:25 03/19/17 12:56 03/19/17 12:25 - Constitutional moderate distress, severe distress, agitated - Routine Respiratory Exam Present: accessory muscle use, decreased breath sounds, respiratory distress, diminished air movement - Routine Cardiovascular Exam Present: tachycardia - Routine Skin Exam Present: cyanosis - Urinary Catheter Management Ordaz Cath placed during this visit: no A/P Progress Note ([facility]) (1) Ischemic cardiomyopathy Status: Acute Current Visit: Yes (2) Congestive heart failure Status: Acute Current Visit: Yes (3) Tobacco use Status: Acute Current Visit: Yes (4) Dehydration Status: Acute Current Visit: Yes (5) Elevated lactic acid level Status: Acute Current Visit: Yes (6) Elevated troponin I level Status: Acute Current Visit: Yes (7) Leukocytosis Status: Acute Current Visit: Yes (8) Liver mass, right lobe Status: Acute Current Visit: Yes (9) Near syncope Status: Acute Current Visit: Yes (10) Renal insufficiency Status: Acute Current Visit: Yes (11) Anxiety Status: Chronic Current Visit: Yes (12) Hypertension Status: Chronic Current Visit: Yes - Time Spent With Patient Greater than 35 minutes (Respiratory distress likely due to sedation and obstructive airway/ESA that improved with BiPAP.)
[2017-03-19 14:39] LABS: ABG Base Excess -9.1 mmol/L (-2.4-2.3); ABG HCO3 17.2 mmhg (22.0-26.0); ABG Oxygen Saturation 99 % (90-100); ABG PCO2 35.5 mmhg (35.0-45.0); ABG PO2 163.7 mmhg (80-100); ABG TCO2 18.3 mmhg (23-27)
[2017-03-19 14:40] LABS: Allen's Test ACCEPTABLE; Oxygen 60 %; Source L RADIAL
--- NOTE | 2017-03-19 14:48 | PC.NURSE ---
PATIENT WAS STUCK L RADIAL ON ABG AT 1325 INSTEAD OF RIGHT RADIAL
[2017-03-19 15:45] LABS: Lactic Acid Follow Up (RFLX 1) 3.3 (0.4-2.0); Reflex Lactic (2 hrs) Add Lactic Reflex
[2017-03-19 17:53] LABS: Lactic Acid Follow up (RFLX 2) 2.5 (0.4-2.0)
[2017-03-22 08:31] LABS: CATHL Activated Clotting Time 247 SEC (74-125)
[2017-03-22 08:32] LABS: CATHL Activated Clotting Time 263 SEC (74-125)
== END 2017-03-19 18:49 | disposition short-term general hospital (02) | DRG 853 ==
LOC: ER 20:45 → ICU 23:54
PROVIDERS: Internal Medicine; Physician Assistant; Admitting Provider Family Medicine; Emergency Provider Emergency Medicine; Family Provider Family Medicine; PCP Nurse Practitioner Family; Visit Provider Family Medicine
PROC: 4A023N7 Measurement of Cardiac Sampling and Pressure, Left Heart, Percutaneous Approach (ICD-10-PCS; principal; 2017-03-19 14:05)
DX: R65.10 Systemic inflammatory response syndrome (SIRS) of non-infectious origin without acute organ dysfunction (principal); I50.21 Acute systolic (congestive) heart failure; I25.10 Atherosclerotic heart disease of native coronary artery without angina pectoris; R16.0 Hepatomegaly, not elsewhere classified; Z72.0 Tobacco use; I25.5 Ischemic cardiomyopathy; R06.03 Acute respiratory distress; I11.0 Hypertensive heart disease with heart failure
CPT/HCPCS: 36415; 71045; 74176; 76700; 80048; 80053; 81001; 82550; 82553; 82803; 82962; 83605; 83880; 84484; 85007; 85025; 85347; 87040; 87077; 87086; 87088; 87186; 87275; 87276; 87486; 87581; 87633; 87798; 92920; 93005; 93306; 93458; 94640; 94660; 94760; 94761; 96361; 96365; 96366; 96367; 99152; 99153; 99285; C1725; C1769; J0456; J1644; J2720; Q9967

== ENCOUNTER → 2017-04-23 09:55 | Outpatient (CLI) | payer OTHER, SELFPAY ==
--- NOTE | 2017-04-23 10:07 | CT_ITS ---
CT abdomen w con CLINICAL INDICATION: ITS.REASON: FU LIVER ABCESS ORDERING PHYSICIAN: Jesu Crooks MD PATIENT AGE: 61 years COMPARISON: 03/18/2017 TECHNIQUE: Axial images obtained with sagittal and coronal reformats. PROCEDURE: Oral Contrast: None IV Contrast: 75 mL's of Isovue-370. 3 phase imaging performed at 30 seconds, 60 seconds, and 10 minutes following contrast administration. FINDINGS: The previously noted slightly hypodense lesion in the right hepatic lobe has decreased in size measuring 3.5 x 2.9 cm previously 7.4 x 5.8 cm. A percutaneous placed drainage is noted along the inferior aspect of the collection. A minimal amount perihepatic fluid at this region Mild atelectatic changes are present in the right lung base. No pleural effusion or pneumoperitoneum evident. The remaining liver has an unremarkable appearance. The spleen, adrenal glands, pancreas and right kidney are unremarkable. A 2.7 cm cyst projects off the lateral aspect of the left kidney. IMPRESSION: Interval placement of a pigtail catheter into the collection in the right hepatic lobe which has decreased in size measuring 3.5 x 2.9 cm previously 7.4 x 5.8 cm. There is minimal amount perihepatic fluid
--- NOTE | 2017-04-23 13:37 | HMH.ITSHM ---
LISINOPRIL METOPROLOL ASA FUROSEMIDE LIPITOR PROZAC PLAIX ROCEPHIN
== END ==
PROVIDERS: Family Provider Family Medicine; PCP Internal Medicine Adolescent Medicine; Visit Provider Internal Medicine Gastroenterology
DX: K75.0 Abscess of liver (principal)
CPT/HCPCS: 74160; Q9967

== ENCOUNTER → 2017-05-10 06:31 | Outpatient (CLI) | payer OTHER, SELFPAY ==
--- NOTE | 2017-05-10 06:38 | NM_ITS ---
CARDIOLITE SPECT MYOCARDIAL PERFUSION SCAN, REST AND STRESS: EXERCISE STRESS TUALITY [facility] REVIEW QGS EF AND WALL MOTION EVALUATION: QPS - PERFUSION EVALUATION HISTORY: Abnormal EKG, SOB, HTN DOSE: 10.41 mCi technetium 99m mibi intravenously at rest followed by 32.9 mCi technetium 99m mibi following the intravenous ministration of 0.4 mg of Lexiscan. Resting blood pressure is 139/78. Stress blood pressure 123/81. FINDINGS: Ejection fraction is calculated to be 28%. Stress images reveal severe left ventricular dilatation with severely reduced activity in the inferior wall apex and half of the anterior wall. Rest images reveal less left ventricular dilatation with improved activity in the inferior wall with persistent decreased activity in the septum and apex. Gated images calculated ejection fraction of 28% with severe left ventricular dilatation mid anterior apical akinesis inferior wall hypokinesis. IMPRESSION: High risk abnormal stress test with severely reduced ejection fraction previous mid anterior apical myocardial infarction with no evidence of reversible ischemia with previous inferior nontransmural myocardial infarction with significant reversible ischemia. Large regional wall motion abnormalities with severely dilated left ventricle
--- NOTE | 2017-05-10 09:16 | HMH.ITSHM ---
ASA LIPITOR PLAVIX DULERA PROZAC LISINOPRIL METOPROLOL SPIRIVA OCUVITE LEVAQUIN
== END ==
PROVIDERS: Family Provider Family Medicine; PCP Internal Medicine Adolescent Medicine; Visit Provider Internal Medicine Adolescent Medicine
DX: I25.119 Atherosclerotic heart disease of native coronary artery with unspecified angina pectoris (principal); R94.31 Abnormal electrocardiogram [ECG] [EKG]; R06.02 Shortness of breath; I10 Essential (primary) hypertension
CPT/HCPCS: 78452; 93017; A9502; J2785

== ENCOUNTER → 2017-05-24 10:33 | Outpatient (CLI) | payer OTHER, SELFPAY ==
--- NOTE | 2017-05-24 10:46 | CT_ITS ---
CT abdomen pelvis w con COMPARISON: CT scan the abdomen and pelvis 04/23/2017 HISTORY: Follow-up liver abscess, post drainage TECHNIQUE: Multiaxial scans obtained from hemidiaphragms to the pelvic floor and were performed with IV contrast only. Sagittal and coronal reformats were evaluated as well. FINDINGS: The lower lung escobar are clear. There is generalized cardio megaly. The drainage catheter has been removed leaving a small hypodense lesion posterior aspect of the right hepatic lobe with somewhat irregular borders now measuring possibly 1.7 x 2.0 x 1.3 cm. The remainder of the liver appears normal. The stomach spleen pancreas and gallbladder are normal. The adrenal glands are normal and the kidneys are normal in size and show symmetrical function again showing a small exophytic cyst midpole left kidney. Small bowel is normal. The appendix is normal caliber and retrocecal in location. There is moderate stool in ascending and transverse and proximal descending colon. The urinary bladder and prostate are normal. There are small bilateral inguinal hernias containing fat only. IMPRESSION: Interval decrease in size of the irregular hypodense lesion posterior aspect right lobe of liver following percutaneous drainage, other nonacute findings as described
== END ==
PROVIDERS: Family Provider Family Medicine; PCP Internal Medicine Adolescent Medicine; Referring Provider Internal Medicine Infectious Disease; Visit Provider Internal Medicine Adolescent Medicine
DX: K75.0 Abscess of liver (principal)
CPT/HCPCS: 74177; Q9967

== ENCOUNTER → 2017-06-11 14:35 | Outpatient (CLI) | payer OTHER, SELFPAY ==
--- NOTE | 2017-06-11 14:38 | CA_ITS ---
PROCEDURE: 2-D M-mode and color Doppler study, Definity contrast was utilized to delineate endocardial surfaces. INDICATIONS FOR THE TEST: Chest pain COPD Heart Murmur Tobacco SmokingX Palpitations Fatigue Syncope Edema HypertensionXDiabetes Mellitus Rheumatic Fever SOB JONES Obesity HyperlipidemiaX Family History HD Additional History CM,CHF PATIENT INFORMATION HEIGHT: 70 WEIGHT:196 GENDER: Male B/P:100/64 2-D/M-MODE INTERPRETATION: 2-D MEASUREMENTS OBSERVED VALUES IN CMS Right Ventricular Dimension (RVDd) 3.0 Interventricular Septum (Thickness)(IVsd) 1.2 Left Ventricular Internal Dimensions(LVIDd) 5.7 Left Ventricular Posterior Wall (Thickness)(LVPWd) 1.1 Aortic Root 3.5 Aortic Cusp Separation 2.1 Left Atrial Dimensions (LAD) 3.9 2D 1. Left atrium is mildly enlarged, left ventricle is normal size, there is mild concentric left ventricular hypertrophy, visually estimated ejection fraction 40%, there is marked hypokinesis involving mid to distal septum, anterior and anteroapical wall. 2. The right atrium and right ventricle are mildly enlarged with normal contractility. 3. The aortic valve is minimally thickened and fibrosed. 4. The mitral and tricuspid valve leaflets are minimally thickened. 5. The pulmonic valve is poorly visualized 6. No significant pericardial effusion noted. DOPPLER INTERROGATION: Doppler interrogation of the aortic, mitral and tricuspid valvular presence of mild mitral and tricuspid regurgitation, tricuspid and jet velocity insufficient for calculation of the right ventricular systolic pressure, grade 1 diastolic dysfunction seen without tissue Doppler evidence of raised left atrial pressure. CONCLUSION: 1. Mildly left atrium, normal left ventricular size, mild concentric left ventricular hypertrophy, visually estimated ejection fraction 40% with segmental wall motion abnormality described above, Definity contrast was utilized to delineate endocardial surfaces. Grade 1 diastolic dysfunction seen without tissue Doppler evidence of raised left atrial pressure. 2. Mildly enlarged right ventricle with normal contractility. 3. Mild mitral and tricuspid regurgitation 4. No significant pericardial effusion noted.
== END ==
PROVIDERS: Family Provider Family Medicine; PCP Internal Medicine Adolescent Medicine; Visit Provider Internal Medicine Cardiovascular Disease
DX: I25.5 Ischemic cardiomyopathy (principal); I50.22 Chronic systolic (congestive) heart failure; I25.10 Atherosclerotic heart disease of native coronary artery without angina pectoris; I10 Essential (primary) hypertension; A40.1 Sepsis due to streptococcus, group B
CPT/HCPCS: 93306

== ENCOUNTER → 2017-07-01 15:21 | Outpatient (CLI) | payer OTHER, SELFPAY ==
[2017-07-01 16:30] LABS: Anion Gap 11.8 mEq/L (5-15); Blood Urea Nitrogen 19 mg/dL (7-18); Carbon Dioxide 31 mmol/L (21.0-32.0); Chloride 101 mmol/L (98-107); Creatinine,Serum 1.02 mg/dL (0.70-1.30); Estimated Glomerular Filt Rate 74 ml/min (>60); GFR (African American) 89 ML/MIN (>60); Glucose 92 mg/dL (74-106); Potassium 4.8 mmoL/L (3.5-5.1); Sodium 139 mmol/L (136-145)
== END ==
PROVIDERS: Visit Provider Internal Medicine Cardiovascular Disease
DX: I25.10 Atherosclerotic heart disease of native coronary artery without angina pectoris (principal); I42.9 Cardiomyopathy, unspecified; E78.5 Hyperlipidemia, unspecified
CPT/HCPCS: 36415; 80048; 83880

== ENCOUNTER → 2017-07-19 08:37 | Outpatient (CLI) | payer OTHER, SELFPAY ==
[2017-07-19 09:45] LABS: Blood Urea Nitrogen 28 mg/dL (7-18); Carbon Dioxide 28 mmol/L (21.0-32.0); Chloride 102 mmol/L (98-107); Creatinine,Serum 1.23 mg/dL (0.70-1.30); Estimated Glomerular Filt Rate 59 ml/min (>60); GFR (African American) 72 ML/MIN (>60); Glucose 159 mg/dL (74-106); Sodium 140 mmol/L (136-145)
== END ==
PROVIDERS: Visit Provider Internal Medicine Cardiovascular Disease
DX: I50.9 Heart failure, unspecified (principal); E86.0 Dehydration
CPT/HCPCS: 36415; 80048; 83880

== ENCOUNTER → 2017-08-10 12:15 | Outpatient (CLI) | payer OTHER, SELFPAY ==
--- NOTE | 2017-08-10 12:19 | NM_ITS ---
Cardiac MUGA scan : Indication for test: Coronary artery disease, history of HI, status post) extending, hypertension family history to evaluate left ventricular systolic function. Procedure: Patient received total of 26.7 mCi of technetium 99 sodium pertechnetate, resting blood scan was performed in the standard view. Results: Resting MUGA scan showed an ejection fraction of 42% with mild left ventricular global hypokinesis.
--- NOTE | 2017-08-10 12:48 | HMH.ITSHM ---
CARVEDILOL FENTANYL LASIX VERAPAMIL
== END ==
PROVIDERS: Family Provider Family Medicine; PCP Internal Medicine Adolescent Medicine; Visit Provider Internal Medicine
DX: I25.10 Atherosclerotic heart disease of native coronary artery without angina pectoris (principal)
CPT/HCPCS: 78473; A9512; A9560

== ENCOUNTER → 2017-08-12 11:31 | Outpatient (CLI) | payer OTHER, SELFPAY ==
[2017-08-12 12:05] LABS: Basophils % 0.6 % (0.1-2.0); Eosinophils # 0.2 K/mm3 (0.0-0.4); Eosinophils % 2.7 % (0.1-12.0); Hematocrit 36.6 % (42.0-52.0); Hemoglobin 11.9 g/dL (14.1-18.0); Lymphocytes # 1.2 K/mm3 (0.7-4.5); Lymphocytes % 20.3 K/mm3 (10-50); Mean Corpuscular HGB Conc 32.5 g/dL (31.8-35.4); Mean Corpuscular Hemoglobin 31.4 pg (27.0-31.2); Mean Corpuscular Volume 96.5 fl (80-94); Mean Platelet Volume 7.2 fl (7.4-10.4); Monocytes # 0.4 K/mm3 (0.1-1.0); Monocytes % 6.8 % (1.7-9.3); Neutrophils % 69.5 % (37.0-80.0); Platelet Count 248 K/mm3 (142-424); Red Blood Count 3.79 M/mm3 (4.60-6.20); Red Cell Distribution Width 13.2 % (11.5-17.5); White Blood Count 5.8 K/mm3 (4.8-10.8)
[2017-08-12 13:04] LABS: Anion Gap 12.2 mEq/L (5-15); Blood Urea Nitrogen 20 mg/dL (7-18); Carbon Dioxide 30 mmol/L (21.0-32.0); Chloride 105 mmol/L (98-107); Creatinine,Serum 1.12 mg/dL (0.70-1.30); Estimated Glomerular Filt Rate 66 ml/min (>60); GFR (African American) 80 ML/MIN (>60); Glucose 92 mg/dL (74-106); Potassium 4.2 mmoL/L (3.5-5.1); Sodium 143 mmol/L (136-145)
== END ==
PROVIDERS: Family Provider Family Medicine; PCP Internal Medicine Adolescent Medicine; Visit Provider Internal Medicine Cardiovascular Disease
DX: I25.5 Ischemic cardiomyopathy (principal); I10 Essential (primary) hypertension; I25.10 Atherosclerotic heart disease of native coronary artery without angina pectoris
CPT/HCPCS: 36415; 80048; 83880; 85025

== ENCOUNTER → 2017-08-23 07:20 | Outpatient (CLI) | payer OTHER, SELFPAY ==
[2017-08-23 08:30] LABS: Anion Gap 12.9 mEq/L (5-15); Blood Urea Nitrogen 22 mg/dL (7-18); Calcium 8.9 mg/dL (8.5-10.1); Carbon Dioxide 27 mmol/L (21.0-32.0); Chloride 103 mmol/L (98-107); Creatinine,Serum 1.13 mg/dL (0.70-1.30); Estimated Glomerular Filt Rate 65 ml/min (>60); GFR (African American) 79 ML/MIN (>60); Glucose 195 mg/dL (74-106); Potassium 3.9 mmoL/L (3.5-5.1); Sodium 139 mmol/L (136-145)
== END ==
PROVIDERS: Visit Provider Physician Assistant
DX: I25.5 Ischemic cardiomyopathy (principal); I10 Essential (primary) hypertension; I25.10 Atherosclerotic heart disease of native coronary artery without angina pectoris; N52.9 Male erectile dysfunction, unspecified
CPT/HCPCS: 36415; 80048; 83880

== ENCOUNTER → 2018-02-24 08:45 | Outpatient (CLI) | payer OTHER, SELFPAY ==
[2018-02-24 11:17] LABS: Alanine Aminotransferase 30 U/L (12-78); Albumin Level 3.6 gm/dL (3.4-5.0); Alkaline Phosphatase 114 U/L (46-116); Aspartate Amino Transferase 13 U/L (15-37); Bilirubin,Direct 0.2 mg/dL (0.0-0.2); Bilirubin,Indirect 0.5 mg/dL (0.0-0.9); Bilirubin,Total 0.7 mg/dL (0.2-1.0); Chol/HDL Ratio 3.2 (1-3.5); Cholesterol 126 mg/dL (140-200); HDL Cholesterol 40 mg/dL (27-67); LDL Cholesterol 65 mg/dL (0-130); Total Protein,Serum 6.9 gm/dL (6.4-8.2); Triglycerides 104 mg/dL (30-200); VLDL Cholesterol 21 mg/dL (0-40)
== END ==
PROVIDERS: Urology; PCP Internal Medicine Adolescent Medicine; Visit Provider Internal Medicine Cardiovascular Disease
DX: I25.10 Atherosclerotic heart disease of native coronary artery without angina pectoris (principal); E78.5 Hyperlipidemia, unspecified; I10 Essential (primary) hypertension; I25.5 Ischemic cardiomyopathy; I50.9 Heart failure, unspecified
CPT/HCPCS: 36415; 80061; 80076; 93306

== ENCOUNTER → 2018-05-17 08:17 | Outpatient (CLI) | payer MEDICARE, OTHER, SELFPAY ==
--- NOTE | 2018-05-17 08:24 | US_ITS ---
US aorta HISTORY: Screening for abdominal aortic aneurysm ITS.REASON: DIZZINESS,GREG BRUIT COMPARISON: FINDINGS: Mild amount of plaque is present within the abdominal aorta. No aneurysm apparent. Proximal common iliacs have an unremarkable appearance. IMPRESSION: No evidence of abdominal aortic aneurysm.
--- NOTE | 2018-05-17 08:25 | CT_ITS ---
CT lung screening EXAM: CT LUNG LOW DOSE WO CONTRAST HISTORY: 80 pack-year smoking history, asymptomatic for lung cancer ITS.REASON: H/O NICOTINE DEPENDENCE ORDERING PHYSICIAN: Te Zavaleta MD PATIENT AGE: 63 years COMPARISON: None TECHNIQUE: The exam was performed on a GE Light Speed [address] scanner using 2.90 mGy CTDI. A low dose helical CT CHEST was performed on a multi-detector scanner. All CT scans at the facility use one or more dose reduction, viz: automated exposure control, ma/kV adjustment per patient size (including targeted exams where dose is matched to indication, i.e. head), or iterative reconstruction technique. The LDCT was performed in a facility that meets the criteria for the screening program. Data regarding this exam was submitted to ACR which is an approved registry. The order for this exam indicates that it came as a result of a lung cancer screening counseling shard decision-making visit that included all the elements required of such a visit including smoking cessation. The radiologist interpreting this exam meets the CMS criteria for the LDCT lung cancer screening program. The exam is reported using the Lung-RADS classification scale and reported to the ACR registry. NOTE: This study was performed for the specific purposes of lung cancer screening and is not an alternative to diagnostic chest CT. RADIATION DOSE: CTDI vol(CT dose Index-volume) = 2.90mG DLP (Dose Length Product) = 105.25 mGcm FINDINGS: Scattered small lymph nodes present in the mediastinum measuring up to 1.5 x 1 cm. There are coronary artery calcifications and/or stents noted. There is mild prominence of left ventricle Centrilobular emphysema with scattered areas of scarring. On the coronal image #39 there is some lobularity along both right and left aspect of the trachea. This is of questionable clinical significance ML and be related to some tortuosity of the trachea with partial volume averaging artifact.. IMPRESSION: 1. Lung RADS Category: 2, benign 2. Other findings: Centrilobular emphysema. Coronary artery disease. Small mediastinal lymph nodes RECOMMENDATIONS: 12 month LDCT follow-up
--- NOTE | 2018-05-17 08:49 | CI_ITS ---
Cerebrovascular Exam Indications: 780.4 Dizziness and giddiness. 785.9 Bruit. IMPRESSIONS 1. The bilateral vertebral arteries are patent with normal antegrade flow. 2. Study suggests 20-49% stenosis involving the right internal carotid artery. 3. Study suggests 20-49% stenosis involving the left internal carotid artery. History: Risk factors: Extobacco use. Hypertension. Carotid duplex study. Complete study and Doppler flow study including spectral analysis, color and alex scale imaging. Height: Height: 177.8cm. Height: 70in. Weight: Weight: 88.9kg. Weight: 195.6lb. Body mass index: BMI: 28.1kg/m^2. Body surface area: BSA: 2.11m^2. Location: Vascular laboratory. Patient status: Outpatient. Tables: Arterial flow: + +--------+--------+ Location V sys V ed + +--------+--------+ Right CCA - proximal 73.9cm/s 29.9cm/s + +--------+--------+ Right CCA - distal 68.4cm/s 22.8cm/s + +--------+--------+ Right ECA 175cm/s 39.3cm/s + +--------+--------+ Right ICA - proximal 125cm/s 40.1cm/s + +--------+--------+ Right ICA - mid 86.4cm/s 33cm/s + +--------+--------+ Right ICA - distal 80.1cm/s 33.8cm/s + +--------+--------+ Right vertebral 56cm/s 21.6cm/s + +--------+--------+ Left CCA - proximal 79.6cm/s 29.5cm/s + +--------+--------+ Left CCA - distal 103cm/s 37.3cm/s + +--------+--------+ Left ECA 87.2cm/s 27.1cm/s + +--------+--------+ Left ICA - proximal 57.5cm/s 16.6cm/s + +--------+--------+ Left ICA - mid 63.5cm/s 28.7cm/s + +--------+--------+ Left ICA - distal 48.1cm/s 16.7cm/s + +--------+--------+ Left vertebral 48.3cm/s 16.7cm/s + +--------+--------+ Velocity ratios: + + + + + + Right, V sys Right, V ed Left, V sys Left, V ed + + + + + + Max ICA/dist CCA 1.83 1.76 0.62 0.77 + + + + + + (Report amended ) Electronically signed by: Lito Lynn [id number]
== END ==
PROVIDERS: PCP Internal Medicine Adolescent Medicine; Visit Provider Internal Medicine Adolescent Medicine
DX: Z12.2 Encounter for screening for malignant neoplasm of respiratory organs (principal); Z87.891 Personal history of nicotine dependence; R42 Dizziness and giddiness
CPT/HCPCS: 76770; 93880

== ENCOUNTER → 2018-05-25 13:00 | Outpatient (CLI) | payer MEDICARE, OTHER, SELFPAY ==
--- NOTE | 2018-05-25 13:02 | NM_ITS ---
Cardiac MUGA scan Indication for the test evaluate left ventricular systolic function Procedure: Patient received total of 25.5 mCi of sodium pretechnetate technetium 99, resting MUGA scan was performed with standard view. Results Resting scan shows an ejection fraction of 48% with mild left ventricular global hypokinesis.
== END ==
PROVIDERS: PCP Internal Medicine Adolescent Medicine; Visit Provider Internal Medicine Cardiovascular Disease
DX: I25.5 Ischemic cardiomyopathy (principal)
CPT/HCPCS: 78473; A9512; A9560

== ENCOUNTER → 2018-05-30 13:01 | Outpatient (CLI) | payer MEDICARE, OTHER, SELFPAY | PROVIDERS: PCP Internal Medicine Adolescent Medicine; Visit Provider Internal Medicine Cardiovascular Disease | DX: G47.33 Obstructive sleep apnea (adult) (pediatric); E78.5 Hyperlipidemia, unspecified; I25.10 Atherosclerotic heart disease of native coronary artery without angina pectoris; I25.5 Ischemic cardiomyopathy; I50.9 Heart failure, unspecified | CPT/HCPCS: G0399 ==

== ENCOUNTER → 2018-08-09 09:21 | Outpatient (CLI) | payer MEDICARE, OTHER, SELFPAY | PROVIDERS: PCP Internal Medicine Adolescent Medicine; Visit Provider Nurse Practitioner Family | DX: G47.33 Obstructive sleep apnea (adult) (pediatric) (principal) | CPT/HCPCS: 94762 ==

== ENCOUNTER → 2018-12-14 19:49 | Outpatient (CLI) | payer MEDICARE, OTHER, SELFPAY | PROVIDERS: PCP Internal Medicine Adolescent Medicine; Visit Provider Specialist | DX: G47.33 Obstructive sleep apnea (adult) (pediatric) (principal) | CPT/HCPCS: 95811 ==

== ENCOUNTER → 2019-05-17 10:08 | Outpatient (CLI) | payer MEDICARE, OTHER, SELFPAY ==
[2019-05-17 11:00] LABS: Basophils % 0.8 % (0.1-2.0); Eosinophils # 0.3 K/mm3 (0.0-0.4); Eosinophils % 4.8 % (0.1-12.0); Hematocrit 36.6 % (42.0-52.0); Hemoglobin 12.5 g/dL (14.1-18.0); Lymphocytes % 18.7 % (10-50); Mean Corpuscular Volume 94.1 fl (80-94); Mean Platelet Volume 7.8 fl (7.4-10.4); Monocytes # 0.3 K/mm3 (0.1-1.0); Monocytes % 6.4 % (1.7-9.3); Neutrophils # 3.8 K/mm3 (1.8-7.8); Neutrophils % 69.3 % (37.0-80.0); Platelet Count 240 K/mm3 (142-424); Red Cell Distribution Width 12.7 % (11.5-17.5); White Blood Count 5.4 K/mm3 (4.8-10.8)
[2019-05-17 11:41] LABS: Alanine Aminotransferase 22 U/L (12-78); Albumin Level 4.4 g/dl (3.5-5.0); Albumin/Globulin Ratio 1.7 (1.1-1.8); Alkaline Phosphatase 98 U/L (38-126); Aspartate Amino Transferase 24 U/L (17-59); Bilirubin,Total 0.5 mg/dl (0.2-1.3); Blood Urea Nitrogen 32 mg/dl (9-20); Calcium 9.9 mg/dl (8.4-10.2); Carbon Dioxide 29 mmol/L (22.0-30.0); Chloride 102 mmol/L (98-107); Chol/HDL Ratio 4.9 (1-3.5); Cholesterol 123 mg/dl (140-200); Estimated Glomerular Filt Rate 55 ml/min (>60); GFR (African American) 67 ML/MIN (>60); Globulin 2.6 g/dL (1.3-3.2); Glucose 120 mg/dl (74-100); HDL Cholesterol 25 mg/dl (40-60); Sodium 142 mmol/L (136-145); Triglycerides 194 mg/dl (30-150); VLDL Cholesterol 39 mg/dL (0-40)
[2019-05-17 11:52] LABS: Direct LDL Cholesterol 65.33 mg/dL (100-129)
== END ==
PROVIDERS: Visit Provider Internal Medicine Adolescent Medicine
DX: I25.119 Atherosclerotic heart disease of native coronary artery with unspecified angina pectoris (principal); I10 Essential (primary) hypertension
CPT/HCPCS: 36415; 80053; 80061; 85025

== ENCOUNTER → 2020-02-16 10:25 | Outpatient (CLI) | payer MEDICARE, OTHER, SELFPAY ==
--- NOTE | 2020-02-16 10:26 | CA_ITS ---
APPROVED REPORT Breakfast Server: Ruchi Bauer RVT Laterality: Bilateral Study Quality: Good Indications: bilateral carotid artery stenosis Risk Factors Hypertension: Doppler Spectral Velocity Analysis ECA (R) 199.90/35.90 cm/s ECA (L) 149.00/43.00 cm/s dICA (R) 54.50/24.60 cm/s dICA (L) 69.60/23.80 cm/s Jim (R) 79.10/20.30 cm/s Jim (L) 69.60/32.00 cm/s pICA (R) 143.30/31.00 cm/s pICA (L) 104.10/22.90 cm/s dCCA (R) 62.00/21.40 cm/s dCCA (L) 113.10/36.90 cm/s pCCA (L) 93.40/34.40 cm/s Vert (R) 32.70/14.40 cm/s ICA/CCA 2.31 Vert (L) 49.00/17.80 cm/s ICA/CCA 0.92 Findings Study suggests 20-49% stenosis of the right internal cartoid artery unchanged from the 05/17/18 study. Study suggests 20-49% stenosis of the left internal cartoid artery unchanged from the 05/17/18 study. Antegrade flow seen bilateral vertebral arteries. Conclusion Study suggests 20-49% stenosis of the right internal cartoid artery unchanged from the 05/17/18 study. Study suggests 20-49% stenosis of the left internal cartoid artery unchanged from the 05/17/18 study. Antegrade flow seen bilateral vertebral arteries. Electronically signed by : Lito Lynn MD 02/16/2020 16:03:03
== END ==
PROVIDERS: PCP Internal Medicine Adolescent Medicine; Visit Provider Nurse Practitioner Family
DX: I65.23 Occlusion and stenosis of bilateral carotid arteries (principal)
CPT/HCPCS: 93880

== ENCOUNTER → 2020-05-31 07:45 | Outpatient (CLI) | payer MEDICARE, OTHER, SELFPAY ==
--- NOTE | 2020-05-31 07:49 | CT_ITS ---
PROCEDURE: CT LUNG SCREENING CLINICAL INDICATION: H/O NICOTINE DEPENDENCE Former smoker Quit >1 year ago 80 pack year smoking history COMPARISON: CT [id number] CT abdomen pelvis w con from 05/24/[address] lung screening from 05/17/2018 TECHNIQUE: The exam was performed on a [employer] Speed [address] scanner using 2.90 mGy CTDI. A low dose helical CT CHEST was performed on a multi-detector scanner. All CT scans at the facility use one or more dose reduction, viz: automated exposure control, ma/kV adjustment per patient size (including targeted exams where dose is matched to indication, i.e. head), or iterative reconstruction technique. The LDCT was performed in a facility that meets the criteria for the screening program. Data regarding this exam was submitted to ACR which is an approved registry. The order for this exam indicates that it came as a result of a lung cancer screening counseling shard decision-making visit that included all the elements required of such a visit including smoking cessation. The radiologist interpreting this exam meets the CMS criteria for the LDCT lung cancer screening program. The exam is reported using the Lung-RADS classification scale and reported to the ACR registry. NOTE: This study was performed for the specific purposes of lung cancer screening and is not an alternative to diagnostic chest CT. RADIATION DOSE: CTDI vol(CT dose Index-volume) = 2.90mG DLP (Dose Length Product) = 117.50 mGcm FINDINGS: COPD changes with centrilobular emphysema. There are some scattered areas of scarring. No suspicious nodules are evident. OTHER FINDINGS: Coronary artery calcifications. Mildly prominent mediastinal lymph nodes. The largest node is in the precarinal region measuring approximately 2 cm and appears slightly more prominent from the previous exam. Isodense nodule projects off the lateral aspect of the left kidney at 2.6 cm IMPRESSION: Lung-RADS Category 2 Benign Appearance or Behavior Follow-up: Continue annual screening with LDCT in 12 months Dictated by: Lito Lynn MD 06/02/2020 16:51 Lito Lynn MD in [place] 06/02/2020 16:51
== END ==
PROVIDERS: PCP Internal Medicine Adolescent Medicine; Visit Provider Internal Medicine Adolescent Medicine
DX: Z87.891 Personal history of nicotine dependence (principal); Z12.2 Encounter for screening for malignant neoplasm of respiratory organs
CPT/HCPCS: 71271

== ENCOUNTER → 2020-08-20 10:22 | Outpatient (CLI) | payer MEDICARE, OTHER, SELFPAY ==
--- NOTE | 2020-08-20 10:23 | CA_ITS ---
APPROVED REPORT EXAM: Comprehensive 2D, Doppler, and color-flow Echocardiogram Scaffold Erector: Alissa Banegas, RCS, RVS Ht: 5 ft 10 in Wt: 206lbs BSA: 2.11 BP: 111/74 mmHg Indications: CAD, CHF, Smoker, HTN, HLD 2D Dimensions IVSd 1.07 cm M: 0.6-1.2 LVEF (Visual) 58.40 % PWd 1.09 cm M: 0.6 - 1.2 LVDd 5.69 cm M: 4.2 - 5.9 LVDs 3.91 cm M: 2.5 - 4.0 Aortic Root 3.56 cm M: 3.1 - 3.7 Left Atrium 4.33 cm M: 3.0 - 4.0 LVOT 2.34 cm (M/F) 1.5-2.5 M-Mode Dimensions LA Diam 4.57 cm (1.9-4.0) LVDd 5.85 cm (3.5-5.7) Ao Diam 3.86 cm (2.0-3.7) LVDs 4.40 cm (3.5-5.7) EF (Teich) 48.40% EPSs 0.94 cm FS 24.80% EDV (Teich) 169.90 mL ESV (Teich) 87.70 mL LV Diastology E Decel Time 393.00 (160-240 msec) E/A Ratio 0.72 Aortic Valve LVOT Max 65.00 (70-110 cm/s) LVOT VTI 14.47 cm AoV Peak John. 129.00 (50-130 cm/s) AO Peak GR. 6.60 mmHg AO Mean GR. 4.00 (<5 mmHg) AO VTI 27.11 (18-25 cm) MARIA G (VTI) 2.30 (2.5-4.5 cm2) Mitral Valve MV A Velocity 85.00 (40-130 cm/s) E/A Ratio 0.72 MV Decel. Time 393.00 (160-240 ms) Pulmonary Valve PV Peak Velocity 91.00 (50-150 cm/s) Tricuspid Valve TR P. Velocity 278.00 cm/s RAP Estimate 10.00 mmHg RVSP 40.90 mmHg Left Ventricle Left atrium is mildly enlarged, left ventricle is normal size, mild concentric left ventricular hypertrophy, visually estimated ejection fraction 40%, there is marked hypokinesis involving the mid to distal septum, anterior and anterior apical wall. Doppler evidence of impaired LV relaxation seen, there is no tissue Doppler performed. Right Ventricle Right atrium and right ventricle mildly enlarged with normal contractility. Aortic Valve Aortic valve is minimally thickened and calcified, there is no aortic stenosis or aortic insufficiency. Mitral Valve Mitral valve is grossly normal, there is trace mitral regurgitation. Tricuspid Valve Tricuspid grossly normal, there is mild tricuspid regurgitation, calculated right ventricular systolic pressure is 41 mmHg. Pulmonic Valve Pulmonic valve is poorly visualized. Great Vessels Aortic root is normal size. Inferior vena cava is not well visualized. Pericardium No significant pericardial effusion noted. Conclusion 1. Mild biatrial enlargement, normal left ventricular size, mild concentric left ventricular hypertrophy, visually estimated ejection fraction 40% with multiple segmental wall motion abnormality described above, Doppler evidence of impaired LV relaxation seen, there is no tissue Doppler performed. 2. Mildly dilated ventricle with normal contractility 3. Mild mitral and tricuspid regurgitation, calculated right ventricular systolic pressure is 41 mmHg. 4. No significant pericardial effusion noted. Electronically signed by : Kirk Loredo, 08/20/2020 11:24:07
== END ==
PROVIDERS: PCP Internal Medicine Adolescent Medicine; Visit Provider Urology
DX: E78.5 Hyperlipidemia, unspecified (principal); I25.10 Atherosclerotic heart disease of native coronary artery without angina pectoris; I25.5 Ischemic cardiomyopathy; I50.22 Chronic systolic (congestive) heart failure; I65.29 Occlusion and stenosis of unspecified carotid artery; I11.0 Hypertensive heart disease with heart failure
CPT/HCPCS: 93306

== ENCOUNTER → 2020-09-02 08:53 | Outpatient (CLI) | payer MEDICARE, OTHER, SELFPAY ==
[2020-09-02 09:50] LABS: Basophils # 0.1 K/mm3 (0-0.2); Basophils % 1.1 % (0.1-2.0); Eosinophils # 0.3 K/mm3 (0.0-0.4); Eosinophils % 5.6 % (0.1-12.0); Hematocrit 37.3 % (42.0-52.0); Hemoglobin 12.9 g/dL (14.1-18.0); Lymphocytes # 1.2 K/mm3 (0.7-4.5); Lymphocytes % 20.6 % (10-50); Mean Corpuscular HGB Conc 34.7 g/dL (31.8-35.4); Mean Corpuscular Hemoglobin 32.8 pg (27.0-31.2); Mean Corpuscular Volume 94.6 fl (80-94); Mean Platelet Volume 7.7 fl (7.4-10.4); Monocytes # 0.4 K/mm3 (0.1-1.0); Monocytes % 7.3 % (1.7-9.3); Neutrophils # 3.9 K/mm3 (1.8-7.8); Neutrophils % 65.5 % (37.0-80.0); Platelet Count 264 K/mm3 (142-424); Red Blood Count 3.95 M/mm3 (4.60-6.20); Red Cell Distribution Width 13.4 % (11.5-17.5); White Blood Count 5.9 K/mm3 (4.8-10.8)
[2020-09-02 10:10] LABS: Chloride 102 mmol/L (98-107); Sodium 139 mmol/L (136-145)
[2020-09-02 10:11] LABS: Potassium 4.8 mmoL/L (3.5-5.1)
[2020-09-02 10:13] LABS: Blood Urea Nitrogen 33 mg/dl (9-20); Estimated Glomerular Filt Rate 55 ml/min (>60); GFR (African American) 67 ML/MIN (>60)
[2020-09-02 10:14] LABS: Anion Gap 15.8 mEq/L (5-15); Calcium 9.1 mg/dl (8.4-10.2); Carbon Dioxide 26 mmol/L (22.0-30.0); Glucose 172 mg/dl (74-100)
== END ==
PROVIDERS: Visit Provider Urology
DX: G47.33 Obstructive sleep apnea (adult) (pediatric) (principal); I25.10 Atherosclerotic heart disease of native coronary artery without angina pectoris; I25.5 Ischemic cardiomyopathy; I50.22 Chronic systolic (congestive) heart failure; I65.23 Occlusion and stenosis of bilateral carotid arteries; R93.1 Abnormal findings on diagnostic imaging of heart and coronary circulation; Z01.812 Encounter for preprocedural laboratory examination; Z11.52 Encounter for screening for COVID-19; I11.0 Hypertensive heart disease with heart failure
CPT/HCPCS: 36415; 80048; 85025; U0003

== ENCOUNTER 2020-09-03 08:50 | Day surgery (SDC) | payer MEDICARE, OTHER, SELFPAY ==
[2020-09-03] VITALS (11 sets, daily range): BP systolic 98–126; BP diastolic 53–92; PULSE 60–70; RESP 17–18; TEMP 36.3; O2SAT 94–97; BMI 29.7
--- NOTE | 2020-09-03 07:02 | IR_ITS ---
APPROVED REPORT Patient Location: Outpatient PROCEDURES Left heart catheterization Left ventriculogram Selective coronary angiogram Attempted angioplasty to a chronically occluded LAD INDICATION Angina pectoris, Coronary disease, Worsening ejection fraction, Chronically occluded LAD Informed consent was obtained prior to the procedure. COMPLICATIONS None Estimated Blood Loss: Less than 10 mls TECHNIQUE 1% lidocaine used anesthetize right groin therefore arteries accessed via Salinger technique and a 4 Argentine sheath was placed right femoral artery. A JL4 JR4 catheter used to perform left heart catheterization left ventriculogram and selective coronary angiogram. At the end the diagnostic angiogram therapeutic heparin was administered giving a therapeutic ACT and the 4 Argentine sheath was exchanged for a 6 Argentine sheath. A JL 4 guide catheter was placed in the left main artery and a Choice PT extra-support wire was used to push through the chronic occlusion in the LAD. Although balloon and a guide liner eventually used I was unable to get the wire back into the [place] lumen or the true lumen in the distal LAD. Despite several attempts and numerous passages of the wire and the balloon the procedure was terminated due to inability to recannulate the lumen. At the end of the procedure the apparatus was removed the groin was reprepped closure changed sheath was removed good hemostasis achieved using Perclose device patient was transferred to the postoperative stable condition ANGIOGRAPHIC RESULTS The left main artery Normal The left anterior descending artery Has proximal 50% stenosis and then occluded throughout the mid segment. There are scant left to left collaterals which collateralized the vessel distally. Large first diagonal artery has a proximal 70% stenosis The circumflex artery Is nondominant large with stents in the proximal mid segment which are widely patent free of in-stent restenosis with excellent proximal distal transitioning The right coronary artery Is dominant and has a proximal 70 to 80% concentric stenosis with a mid vessel 30 to 40% stenosis and distal 60 to 70% stenosis. A large posterior descending artery is widely patent with mild atheromatous plaque The ROCHE ventriculogram reveals Reduced at 35 to 40% The left ventricular end-diastolic pressure 15 mmHg IMPRESSION Chronically occluded mid LAD as described above with unsuccessful revascularization of a chronically occluded LAD Persistent severe disease in the large first diagonal artery and proximal and distal dominant right coronary Reduced ejection fraction Borderline elevated LVEDP PLAN 1. Patient should be referred to [facility] for consideration of CABG surgery. If bypass surgery is denied by the surgeon I would then bring patient back in stent the proximal right coronary in the distal right coronary. 2. Consideration will be given to attempt revascularization of the LAD again. I would recommend stent to the proximal LAD extending into the first diagonal artery 3. Continue medical management 4. Risk factor modification Electronically signed by : Per Ness, 09/04/2020 13:46:57
[2020-09-03 13:29] LABS: CATHL Activated Clotting Time 345 SEC (74-125)
== END 2020-09-03 14:57 | disposition home or self-care (01) ==
LOC: CATHLAB 08:51
PROVIDERS: PCP Internal Medicine Adolescent Medicine; Visit Provider Internal Medicine
DX: G47.33 Obstructive sleep apnea (adult) (pediatric) (principal); I25.10 Atherosclerotic heart disease of native coronary artery without angina pectoris; I25.5 Ischemic cardiomyopathy; I50.22 Chronic systolic (congestive) heart failure; I65.23 Occlusion and stenosis of bilateral carotid arteries; R93.1 Abnormal findings on diagnostic imaging of heart and coronary circulation; R94.31 Abnormal electrocardiogram [ECG] [EKG]; I11.0 Hypertensive heart disease with heart failure; I25.82 Chronic total occlusion of coronary artery
CPT/HCPCS: 85347; 93458; 99152; 99153; C1725; C1760; C1769; J1644; Q9967

== ENCOUNTER → 2021-05-14 07:16 | Outpatient (CLI) | payer MEDICARE, OTHER, SELFPAY ==
[2021-05-14 07:49] LABS: Basophils # 0.1 K/mm3 (0-0.2); Eosinophils # 0.3 K/mm3 (0.0-0.4); Eosinophils % 6.7 % (0.1-12.0); Hematocrit 37.7 % (42.0-52.0); Hemoglobin 12.7 g/dL (14.1-18.0); Lymphocytes % 19.8 % (10-50); Mean Corpuscular HGB Conc 33.6 g/dL (31.8-35.4); Mean Corpuscular Hemoglobin 33.2 pg (27.0-31.2); Mean Corpuscular Volume 98.9 fl (80-94); Mean Platelet Volume 9.4 fl (7.4-10.4); Monocytes # 0.4 K/mm3 (0.1-1.0); Monocytes % 7.5 % (1.7-9.3); Neutrophils # 3.3 K/mm3 (1.8-7.8); Platelet Count 253 K/mm3 (142-424); Red Blood Count 3.81 M/mm3 (4.60-6.20); Red Cell Distribution Width 14.4 % (11.5-17.5)
[2021-05-14 08:18] LABS: Alanine Aminotransferase 26 U/L (12-78); Albumin/Globulin Ratio 1.5 (1.1-1.8); Alkaline Phosphatase 137 U/L (38-126); Anion Gap 11.7 mEq/L (5-15); Aspartate Amino Transferase 28 U/L (17-59); Bilirubin,Total 0.6 mg/dl (0.2-1.3); Blood Urea Nitrogen 19 mg/dl (9-20); Calcium 8.9 mg/dl (8.4-10.2); Carbon Dioxide 30 mmol/L (22.0-30.0); Chloride 104 mmol/L (98-107); Cholesterol 111 mg/dl (140-200); Estimated Glomerular Filt Rate 67 ml/min (>60); GFR (African American) 81 ML/MIN (>60); Globulin 2.6 g/dL (1.3-3.2); Glucose 109 mg/dl (74-100); HDL Cholesterol 28 mg/dl (40-60); Magnesium 1.9 mg/dl (1.6-2.3); Potassium 4.7 mmoL/L (3.5-5.1); Sodium 141 mmol/L (136-145); Total Protein,Serum 6.6 g/dl (6.3-8.2); Triglycerides 167 mg/dl (30-150); VLDL Cholesterol 33 mg/dL (0-40)
[2021-05-14 08:28] LABS: NT Pro Brain Natriuretic Pep. 1380 pg/mL (0-125)
[2021-05-14 08:29] LABS: Direct LDL Cholesterol 52.53 mg/dL (100-129)
[2021-05-14 08:49] LABS: Thyroid Stimulating Hormone 4.02 uIU/mL (0.465-4.68)
== END ==
PROVIDERS: Visit Provider Internal Medicine Adolescent Medicine
DX: I50.22 Chronic systolic (congestive) heart failure (principal); I25.119 Atherosclerotic heart disease of native coronary artery with unspecified angina pectoris
CPT/HCPCS: 36415; 80053; 80061; 83735; 83880; 84443; 85025

== ENCOUNTER 2023-05-21 14:55 | Outpatient (CLI) | payer MEDICARE, OTHER, SELFPAY ==
--- NOTE | 2023-05-21 | CT_ITS ---
FINAL REPORT TECHNIQUE: Axial CT images of the chest were obtained without contrast. Low-dose protocol was utilized. This study was performed with techniques to keep radiation doses as low as reasonably achievable (ALARA). Individualized dose reduction techniques using automated exposure control or adjustment of mA and/or kV according to the patient's size were employed. CLINICAL HISTORY: hx smoker, quit 7 years ago, smoked 2ppd when smoker, smoked for 49 years COMPARISON: 05/31/2020 FINDINGS: CT CHEST WITHOUT, LOW DOSE SCREENING CT Di Vol: 2.90 mGy DLP: 104.46 mGy*cm There are multiple borderline sized mediastinal nodes which are stable. No axillary mass or adenopathy. The heart size is normal. There is no pleural or pericardial effusion. The lung windows show a stable 2 mm medial left upper lobe nodule on image 18. No new mass or nodule identified. There is mild emphysema and mild scarring. Limited images of the upper abdomen demonstrate no acute findings. IMPRESSION: LR Category 1: 12 month follow-up low-dose chest CT is recommended. Reviewed, Interpreted and Dictated by Jagjit Bajwa III, MD Transcribed by Macy Hilton Authenticated and [facility]
== END 2023-05-21 23:59 ==
PROVIDERS: PCP Internal Medicine Adolescent Medicine; Visit Provider Internal Medicine Adolescent Medicine
DX: Z87.891 Personal history of nicotine dependence (principal)
CPT/HCPCS: 71271